=== PATIENT | female | born 1955 | race Caucasian/White ===

== ENCOUNTER → 2018-02-16 | Outpatient (CLI) | payer OTHER | END | disposition home or self-care (01) | LOC: C.MAMM 09:12 | PROVIDERS: ATTEND Internal Medicine | DX: M85.88 Other specified disorders of bone density and structure, other site (principal); M85.851 Other specified disorders of bone density and structure, right thigh; M85.852 Other specified disorders of bone density and structure, left thigh ==

== ENCOUNTER 2023-11-12 21:21 | Inpatient (IN) ==
--- NOTE | 2023-11-12 21:55 | Emergency Department Note ---
Impression & Plan Acute hypoxic respiratory failure, Glioblastoma of frontal lobe, COVID-19, Weakness ED Provider Note Provider: Jacob Cortez MD DATE OF SERVICE: 11/12/2023 CHIEF COMPLAINT: Fever, COVID, weakness HISTORY OF PRESENT ILLNESS: Patient is a 68-year-old female unfortunate history of GBM status postresection in August at [facility] just finished a course of chemotherapy and radiation last week presenting here today with about 2 days of illness. Patient evidently really became ill yesterday but might been a little bit sick the day before. Somewhat productive cough. No fevers. Increasing weakness and this evening was unable to get out of bed well. EMS activated. Tested positive for COVID earlier today and was attempting to give first dose of Paxlovid with the patient was unable to do this. Reportedly bit more weak and may be little more confused but not too far off her baseline per at bedside. No falls. Some diarrhea and urinary frequency. No history of oxygen uses. No OTC medications or Tylenol today. Received at least the initial vaccines for COVID. PAST MEDICAL HISTORY: As noted above MEDICATIONS: Reviewed home medication list but not really taking all medications at this time SOCIAL HISTORY: lives at home PHYSICAL EXAM: GENERAL: alert and oriented in no acute distress on stretcher fatigued in appearance Head: normocephalic and atraumatic EYES: No injection, discharge or icterus. NECK: Trachea midline. Supple. ENT: Mucous membranes pink and moist. LUNGS: Airway patent. No retractions. Breath sounds with some transmitted upper airway sounds HEART: Regular rate and rhythm. No chest wall tenderness ABDOMEN: Soft and non-tender, without guarding or rebound. SKIN: Acyanotic, warm, dry, without rashes EXTREMITIES: Without swelling, tenderness or deformity NEUROLOGICAL: No focal deficits. No aphasia. No facial droop or slurred speech. EK bpm sinus tachycardia. No PVC or PAC. No acute ST segment elevation with some nonspecific T wave changes. QTc calculated by the 650 ms but believe this is overestimating. CONTINUOUS CARDIAC MONITORING: was ordered and showed a heart rate of 100s-120s bpm in sinus tachycardia 1 view chest x-ray per my interpretation: No evidence of obvious pneumonia, pneumothorax, or significant pulmonary edema. Patient's laboratory studies and imaging reviewed. Differential includes Infection, dehydration, metabolic abnormality, hypo/hyperglycemia, electrolyte disturbance, anemia, hypoxia, cardiac sources, intracerebral event, toxicologic, neurologic, as well as other pathologies. IMPRESSION/MEDICAL DECISION MAKING: Patient recently completed chemotherapy and radiation for GBM. COVID-positive evidently febrile upon arrival newly hypoxic. We cannot follow commands to swallow pills according to . Given some IV Tylenol IV fluid and IV dexamethasone given hypoxic COVID status. Chest x-ray head CT initially ordered but nonfocal exam. No trauma reported. Benign abdomen. Denies pain. Blood work does not show any significant leukocytosis or neutropenia. No significant electrolyte abnormality other than mild hypokalemia of 13.2. Lactate normal. Procalcitonin elevated 3.85 and with this finding will empirically cover with a dose of cefepime and given her significant oncological history of dose of vancomycin. COVID does confirm positive. Normal troponin. Chest x-ray without significant findings but given the hypoxia and her cancer status we will complete a CT of the chest to exclude PE or other parenchymal pulmonary pathology beyond the expected COVID findings. Postsurgical changes of the head noted surgery on radiology report. CT of the chest shows some inflammatory changes of the lung bases question atelectasis versus pneumonia but no evidence of PE. Given this antibiotics have been given. Has been vaccinated for COVID in the past. Will require admission here. Hospitalist team contacted. Patient has been updated and agreeable. Given her COVID + status, only given 1L of normal saline here and cautious to avoid fluid overload status do not believe she needs additional fluids at this time. Lactate again reassuring and patient mentation seems a little bit clear. Fever clearing. Potassium & magnesium IV supplementation ordered. DIAGNOSIS: COVID-19, hypoxic, history of GBM, weakness, pneumonia DISPOSITION: Hospitalist will evaluate updated and agreeable with the plan Critical Care I have personally spent 41 minutes of critical care time in the direct management of this patient. This includes bedside care, interpretation of diagnostic studies, and testing, discussion with consultants, patient, and family members, and other required patient management activities. These 41 minutes is in excess of all separately billable procedures. Past Med/Surg History Surgical History (Updated 09/22/23 @ 13:38 by Miriam Sinha, RN) S/P craniotomy Left frontal craniotomy 08/20/23 Dr. Medrano at [facility] [place] History of hysterectomy Family History (Updated 09/22/23 @ 13:41 by Miriam Sinha RN) Mother , in her late 70s Dementia Father , in his late 60s Skin cancer Sister No problems noted. 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 How many Children do You have: 0 Diet: regular caffeine: No during the past year weight has: remained stable Assistive Devices: Glasses Allergies Allergies Allergy/AdvReac Type Severity Reaction Status Date / Time Sulfa (Sulfonamide Allergy Intermediate Hives Verified 11/12/23 23:54 Antibiotics) Home Meds Home Medications Medication Instructions Recorded Confirmed No Known Home Medications 11/12/23 11/12/23 Results & Data (ED) Vital Signs Vital Signs - 24 hr 11/12/23 21:26 11/12/23 21:28 11/12/23 22:00 Temperature 39.3 C H Temperature Source Oral Pulse Rate 116 H 118 H 106 H Pulse Rate from SpO2 Sensor 106 H Respiratory Rate 18 24 Respiratory Effort / Characteristics Non-Labored Respiratory Depth Normal Blood Pressure 115/73 115/73 Blood Pressure Mean 87 87 Pulse Oximetry 89 L 91 Oxygen Delivery Method Nasal Cannula Nasal Cannula Oxygen Flow Rate 2 4 Sepsis Recent Fever Within 48 Hours Yes Sepsis New/Unexplained Change in Mental Status No Sepsis Action Taken by Nursing No Action Required 11/12/23 22:30 11/12/23 23:00 11/12/23 23:22 Temperature 37.7 C H Temperature Source Pulse Rate 107 H 120 H 103 H Pulse Rate from SpO2 Sensor 106 H 119 H 104 H Respiratory Rate 19 19 19 Respiratory Effort / Characteristics Respiratory Depth Blood Pressure 102/82 98/62 L 98/69 L Blood Pressure Mean 88 74 78 Pulse Oximetry 92 89 L 96 Oxygen Delivery Method Nasal Cannula Nasal Cannula Nasal Cannula Oxygen Flow Rate 4 5 4 Sepsis Recent Fever Within 48 Hours Sepsis New/Unexplained Change in Mental Status Sepsis Action Taken by Nursing 11/12/23 23:51 11/13/23 00:00 Temperature Temperature Source Pulse Rate 96 H 95 H Pulse Rate from SpO2 Sensor 96 H Respiratory Rate 18 21 Respiratory Effort / Characteristics Respiratory Depth Blood Pressure 93/68 L 105/68 Blood Pressure Mean 75 80 Pulse Oximetry 96 97 Oxygen Delivery Method Nasal Cannula Nasal Cannula Oxygen Flow Rate 4 3 Sepsis Recent Fever Within 48 Hours Sepsis New/Unexplained Change in Mental Status Sepsis Action Taken by Nursing Laboratory Data 11/12/23 21:39 11/12/23 21:39 Lab Results 11/12/23 11/12/23 Range/Units 21:39 22:01 WBC 6.78 (4.8-10.8) K/ul RBC 4.73 (4.20-5.40) M/uL Hgb 14.2 (12.0-16.0) g/dl Hct 41.5 (37.0-47.0) % MCV 87.7 (80.0-100.0) fL MCH 30.0 (25.0-34.0) pg MCHC 34.2 (32.0-36.0) g/dL RDW Std Deviation 39.3 (36.4-46.3) fL RDW Coeff of Brock 12.2 (11.5-14.5) % Plt Count 191 (130-400) K/uL MPV 11.1 (9.4-12.4) fL Immature Gran % (Auto) 0.4 % Neut % (Auto) 86.9 % Lymph % (Auto) 5.5 % [place] % (Auto) 7.1 % Eos % (Auto) 0.0 % Baso % (Auto) 0.1 % Neut # (Auto) 5.89 (1.40-6.50) K/uL Lymph # (Auto) 0.37 L (1.20-3.40) K/uL [place] # (Auto) 0.48 (0.11-0.59) K/uL Eos # (Auto) 0.00 (0.00-0.50) K/uL Baso # (Auto) 0.01 (0.00-0.20) K/uL Immature Gran # (Auto) 0.03 (0.01-0.20) K/uL PT 11.4 (9.0-12.0) Seconds INR 1.0 (0.9-1.1) Sodium 137 (136-145) mmol/L Potassium 3.2 L (3.5-5.1) mmol/L Chloride 104 (98-107) mmol/L Carbon Dioxide 21 (21-32) mmol/L Anion Gap 12 H (3-11) BUN 14 (6-23) mg/dl Creatinine 0.67 (0.6-1.2) mg/dl Est Cr Clr Drug Dosing 76.3 ml/min Est GFR ( Amer) 105.4 ml/min Est GFR (Non-Af Amer) 91.0 ml/min BUN/Creatinine Ratio 20.9 H (10-20) Glucose 130 H (70-99(Fasting)) mg/dl Lactate 1.2 (0.4-2.0) mmol/L Calcium 9.1 (8.6-10.3) mg/dl Total Bilirubin 0.4 (0.2-1.0) mg/dl AST 28 (13-39) U/L ALT 17 (7-52) U/L Alkaline Phosphatase 54 (34-104) U/L Troponin I High Sens 4.6 (0-14) pg/ml Total Protein 6.7 (6.0-8.3) gm/dl Albumin 4.1 (3.4-5.0) gm/dl Globulin 2.6 (2.5-4.0) gm/dl Albumin/Globulin Ratio 1.6 (0.9-2) Procalcitonin 3.85 H (0-0.5) ng/ml SARS-CoV-2, RNA, NAAT POSITIVE A* (NEGATIVE) Administered Medications Vancomycin HCl 1,250 mg/ (Sodium Chloride) 525 mls @ 200 mls/hr IV NOW ONE Stop: 11/13/23 01:33 Last Admin: 11/12/23 23:56 Dose: 200 mls/hr Documented By: [facility] Discontinued Medications Acetaminophen (Acetaminophen 500 Mg Tab) 1,000 mg PO NOW STA Stop: 11/12/23 22:06 Last Admin: 11/12/23 23:19 Dose: Not Given Documented By: [facility] Dexamethasone Sodium Phosphate (DexamethasonePf 10 Mg/Ml Vial) 6 mg IV NOW ONE Stop: 11/12/23 22:10 Last Admin: 11/12/23 22:19 Dose: 6 mg Documented By: [facility] Sodium Chloride (Nss) 500 mls @ 999 mls/hr IV .Q31M ONE Stop: 11/12/23 22:35 Last Infusion: 11/13/23 00:00 Dose: Infused Documented By: [facility] Admin: 11/12/23 22:23 Dose: 999 mls/hr Documented By: MARCIAL Acetaminophen (Ofirmev) 1,000 mg in 100 mls @ 400 mls/hr IV NOW STA Stop: 11/12/23 22:29 Last Infusion: 11/12/23 22:40 Dose: Infused Documented By: [facility] Admin: 11/12/23 22:23 Dose: 400 mls/hr Documented By: MARCIAL Cefepime HCl (Maxipime) 2,000 mg in 20 mls @ 5 mls/min IV NOW STA; Protocol Stop: 11/12/23 22:57 Last Admin: 11/12/23 23:18 Dose: 5 mls/min Documented By: MARCIAL Ioversol (Optiray 320 125ml) 125 ml IV ONCE ONE Stop: 11/12/23 23:45 Last Admin: 11/12/23 23:44 Dose: 118 ml Documented By: CARMELA Imaging Data Radiologist's Impression: Head CT 11/12/23 22:14 Exam(s): CT HEAD Without Contrast EXAM: CT Head Without Intravenous Contrast CLINICAL HISTORY: Reason for exam: confusion, covid, fever, hxGBM. TECHNIQUE: Axial computed tomography images of the head/brain without intravenous contrast. CTDI is 38.1 mGy and DLP is 1162.18 mGy-cm. Automated exposure control was utilized for the study. A dose lowering technique was utilized adhering to the principles of ALARA. COMPARISON: No relevant prior studies available. FINDINGS: No acute intracranial hemorrhage. No midline shift or mass effect. 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 Age-related cerebral volume loss. Periventricular and subcortical white matter hypoattenuation, consistent with chronic microangiopathy. The visualized orbits appear grossly unremarkable. Old LEFT frontal craniotomy. The visualized paranasal sinuses and mastoid air cells are grossly clear. IMPRESSION: No acute intracranial hemorrhage, midline shift, or mass effect. 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 Old LEFT frontal craniotomy. Electronically signed by: Adi Mendez MD 11/12/23 23:58 PM Chest CTA 11/12/23 22:46 Exam(s): CTA CHEST IV Amt: 118 ml optiray 320 EXAM: CT Angiography Chest With Intravenous Contrast CLINICAL HISTORY: Reason for exam: PE, hypoxia, covid, cancer. TECHNIQUE: Axial computed tomographic angiography images of the chest with intravenous contrast. CTDI is 38.1 mGy and DLP is 1162.18 mGy-cm. Automated exposure control was utilized for the study. A dose lowering technique was utilized adhering to the principles of ALARA. MIP reconstructed images were created and reviewed. COMPARISON: No relevant prior studies available. FINDINGS: Pulmonary arteries: Unremarkable. No acute pulmonary embolism. Aorta: No acute findings. No thoracic aortic aneurysm. Lungs: Consolidations at the lung bases, concerning for atelectasis versus pneumonia. Correlate for aspiration. Pleural space: Unremarkable. No significant effusion. No pneumothorax. Heart: Unremarkable. No cardiomegaly. No significant pericardial effusion. No evidence of RV dysfunction. Bones/joints: No acute fracture. No dislocation. Soft tissues: Unremarkable. Lymph nodes: Unremarkable. No enlarged lymph nodes. IMPRESSION: 1. No acute pulmonary embolism. 2. Consolidations at the lung bases, concerning for atelectasis versus pneumonia. Correlate for aspiration. Electronically signed by: Adi Mendez MD 11/13/23 00:02 AM Discharge Plan Visit Data Chief Complaint: Cough Stated Complaint: WEAKNESS AND COUGH X1 DAY, COVID POS ED Provider: Jacob Cortez Discharge Problem: Acute hypoxic respiratory failure, Glioblastoma of frontal lobe, COVID-19, Weakness Patient Disposition: Being Evaluated by Hospitalist Forms Stand Alone Forms: My [facility] [employer] Prescriptions Prescriptions: No Action No Known Home Medications Referrals Referrals: Liane Mccormack DO [Primary Care Provider] -
[2023-11-12 21:59] LABS: Basophils # (auto) 0.01 K/uL (0.00-0.20); Basophils % (auto) 0.1 %; Hematocrit (blood only) 41.5 % (37.0-47.0); Hemoglobin 14.2 g/dl (12.0-16.0); Immature Granulocytes # (auto) 0.03 K/uL (0.01-0.20); Immature Granulocytes % (auto) 0.4 %; Lymphocytes # (auto) 0.37 K/uL (1.20-3.40); Lymphocytes % (auto) 5.5 %; Mean Corpuscular Hgb Conc 34.2 g/dL (32.0-36.0); Mean Corpuscular Volume 87.7 fL (80.0-100.0); Mean Platelet Volume 11.1 fL (9.4-12.4); Monocytes # (auto) 0.48 K/uL (0.11-0.59); Monocytes % (auto) 7.1 %; Neutrophils # (auto) 5.89 K/uL (1.40-6.50); Neutrophils % (auto) 86.9 %; Platelet Count 191 K/uL (130-400); RDW Coefficient of Variation 12.2 % (11.5-14.5); RDW Standard Deviation 39.3 fL (36.4-46.3); Red Blood Count 4.73 M/uL (4.20-5.40); White Blood Count 6.78 K/ul (4.8-10.8)
[2023-11-12] MEDS ORDERED: SODIUM CHLORIDE 0.9% 500 ML IV ONE (22:05)
[2023-11-12] MEDS ORDERED: ACETAMINOPHEN 500 MG TAB PO STA (22:05)
[2023-11-12] MEDS ORDERED: dexAMETHasone**PF** 10 MG/ML VIAL IV ONE (22:09)
[2023-11-12] MEDS ORDERED: ACETAMINOPHEN 1,000 MG/100 ML VIAL IV STA (22:15)
[2023-11-12 22:20] LABS: Albumin Globulin Ratio 1.6 (0.9-2); Albumin Level 4.1 gm/dl (3.4-5.0); BUN Creatinine Ratio 20.9 (10-20); Bilirubin,Total 0.4 mg/dl (0.2-1.0); Calcium 9.1 mg/dl (8.6-10.3); Creatinine Clr Calc Pharmacy 76.3 ml/min; Est GFR (African American) 105.4 ml/min; Globulin 2.6 gm/dl (2.5-4.0); Potassium 3.2 mmol/L (3.5-5.1); Total Protein 6.7 gm/dl (6.0-8.3)
[2023-11-12 22:25] LABS: Troponin I High Sensitivity 4.6 pg/ml (0-14)
[2023-11-12 22:30] LABS: Prothrombin Time 11.4 Seconds (9.0-12.0)
[2023-11-12] MEDS ORDERED: CEFEPIME 2,000 MG/20 ML VIAL IV STA (22:54)
[2023-11-12] MEDS ORDERED: VANCOMYCIN HCL 1,250 MG in SODIUM CHLORIDE 0.9% 500 ML IV ONE (22:56)
[2023-11-12] MEDS ORDERED: VANCOMYCIN CONSULT ACTIVE PRN (22:56)
[2023-11-12] MEDS ORDERED: OPTIRAY 320 125ml IV ONE (23:44)
--- NOTE | 2023-11-13 | CT Scan Report ---
Exam(s): CT HEAD Without Contrast EXAM: CT Head Without Intravenous Contrast CLINICAL HISTORY: Reason for exam: confusion, covid, fever, hxGBM. TECHNIQUE: Axial computed tomography images of the head/brain without intravenous contrast. CTDI is 38.1 mGy and DLP is 1162.18 mGy-cm. Automated exposure control was utilized for the study. A dose lowering technique was utilized adhering to the principles of ALARA. COMPARISON: No relevant prior studies available. FINDINGS: No acute intracranial hemorrhage. No midline shift or mass effect. 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 Age-related cerebral volume loss. Periventricular and subcortical white matter hypoattenuation, consistent with chronic microangiopathy. The visualized orbits appear grossly unremarkable. Old LEFT frontal craniotomy. The visualized paranasal sinuses and mastoid air cells are grossly clear. IMPRESSION: No acute intracranial hemorrhage, midline shift, or mass effect. 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 Old LEFT frontal craniotomy. Electronically signed by: Adi Mendez MD 11/12/23 23:58 PM
--- NOTE | 2023-11-13 00:03 | CT Scan Report ---
Exam(s): CTA CHEST IV Amt: 118 ml optiray 320 EXAM: CT Angiography Chest With Intravenous Contrast CLINICAL HISTORY: Reason for exam: PE, hypoxia, covid, cancer. TECHNIQUE: Axial computed tomographic angiography images of the chest with intravenous contrast. CTDI is 38.1 mGy and DLP is 1162.18 mGy-cm. Automated exposure control was utilized for the study. A dose lowering technique was utilized adhering to the principles of ALARA. MIP reconstructed images were created and reviewed. COMPARISON: No relevant prior studies available. FINDINGS: Pulmonary arteries: Unremarkable. No acute pulmonary embolism. Aorta: No acute findings. No thoracic aortic aneurysm. Lungs: Consolidations at the lung bases, concerning for atelectasis versus pneumonia. Correlate for aspiration. Pleural space: Unremarkable. No significant effusion. No pneumothorax. Heart: Unremarkable. No cardiomegaly. No significant pericardial effusion. No evidence of RV dysfunction. Bones/joints: No acute fracture. No dislocation. Soft tissues: Unremarkable. Lymph nodes: Unremarkable. No enlarged lymph nodes. IMPRESSION: 1. No acute pulmonary embolism. 2. Consolidations at the lung bases, concerning for atelectasis versus pneumonia. Correlate for aspiration. Electronically signed by: Adi Mendez MD 11/13/23 00:02 AM
[2023-11-13] MEDS ORDERED: SODIUM CHLORIDE 0.9% 500 ML IV ONE (00:05)
[2023-11-13] MEDS: POTASSIUM CHLORIDE / WTR 10 MEQ/100 ML PLCT IV SCH ×2 (01:05→02:34)
[2023-11-13] MEDS ORDERED: KETOROLAC TROMETHAMINE 15 MG/ML VIAL IV ONE (01:46)
[2023-11-13] MEDS ORDERED: POTASSIUM CHLORIDE CRTAB 20 MEQ TABCR PO STA (01:46)
[2023-11-13] MEDS: MAGNESIUM SULFATE / D5W 1 GM/100 ML BAG IV SCH ×3 (01:55→06:21)
--- NOTE | 2023-11-13 02:23 | History & Physical Report ---
Date of Service November 13, 2023 Assessment & Plan (1) COVID-19: Plan: 68-year-old female who was in Er on August 2023 for stroke like symptoms and MRI scan showed brain mass in temporal frontal region causing edema and she was given dose of dexamethasone and transferred to [place] and s/p surgery to remove the tumor and pathology showed grade 4 glioblastoma. Then she had completed chemo and radiation on November 02, 2023. As per after that sh e was doing fine. She was alert and oriented. Ambulating without support. Eating and drinking okay and swallowing okay. The last 2 days she is getting weak. Poor oral intake. Having cough. And she was tested for COVID the morning. Tried to give Paxlovid but she was not able to take orally. So she was brought to the ER. In the ER she had temp spike. She was hypoxic requiring oxygen. Patient is currently oriented to name only. Denies any headache. Denies any chest pain. Denies feeling of short of breath. Denies nausea. No abdominal pain. As per she had diarrhea yesterday. Hemodynamics are okay currently. COVID-19 Hypoxia requiring oxygen Started on dexamethasone and remdesivir Follow remdesivir labs Procalcitonin elevated. Could be from covid. ER empirically started on IV Vanco and cefepime which be continued until cultures are available Gentle fluids for 1 L COVID precautions Close monitor History of grade 4 glioblastoma S/p surgery chemo and radiation Prolonged QTc Avoid QT prolonging drugs iv magnesium given Follow repeat EKG Hypokalemia replace follow labs. DVT prophylaxis Lovenox Disposition Telemetry Full code as per discussion with History of Present Illness Chief Complaint: COVID, hypoxia Primary Care Provider: Liane Mccormack DO 68-year-old female who was in ER on August 2023 for stroke like symptoms and MRI scan showed brain mass in temporal frontal region causing edema and she was given dose of dexamethasone and transferred to [place] and s/p surgery to remove the tumor and pathology showed grade 4 glioblastoma. Then she had completed chemo and radiation on November 02, 2023. As per after that she was doing fine. She was alert and oriented. Ambulating without support. Eating and drinking okay and swallowing okay. The last 2 days she is getting weak. Poor oral intake. Having cough. And she was tested for COVID the morning. Tried to give Paxlovid but she was not able to take orally. So she was brought to the ER. In the ER she had temp spike. She was hypoxic requiring oxygen. Patient is currently oriented to name only. Denies any headache. Denies any chest pain. Denies feeling of short of breath. Denies nausea. No abdominal pain. As per she had diarrhea yesterday. Hemodynamics are okay currently. Past medical history. As mentioned above Past surgical history. Colonoscopy. Dental surgery. Craniotomy on August 20/2023. Total abdominal hysterectomy with removal of tubes. Ultrasound-guided breast aspiration left side in 2010. Social history. . No smoking. No alcohol use. No drug use. Family history. Daughter had breast cancer. Father had melanoma. Allergies Allergy/AdvReac Type Severity Reaction Status Date / Time Sulfa (Sulfonamide Allergy Intermediate Hives Verified 11/12/23 23:54 Antibiotics) Home Medications Medication Instructions Recorded Confirmed Type No Known Home Medications 11/12/23 11/12/23 History Past Med/Surg History Surgical History (Updated 09/22/23 @ 13:38 by Miriam Sinha RN) S/P craniotomy Left frontal crani[place] 08/20/23 [place] [facility] [place] of hysterectomy Family History (Updated 09/22/23 @ 13:41 by Miriam Sinha RN) Mother , in her late 70s Dementia Father , in his late 60s Skin cancer Sister No problems noted. 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 ENT- oropharynx clear Neck- supple, no JVD. Lungs- clear to auscultation no wheezing, mild b/l rhonchi Heart- regular rhythm; no murmur, no gallop. Abdomen- normal bowel sounds, soft, nontender, no distension. Extremities- no pretibial edema, no erythema seen. Neuro- alert, oriented x 1; PERRL, no facial palsy; no dysarthria; moves extremities. Skin- warm & dry Results & Data Results & Data Vital Signs (Past 12 Hours) Vital Signs Temp Pulse Resp BP Pulse Ox O2 Del Method O2 Flow Rate 11/13/23 01:26 101 H 11/13/23 01:00 104 H 18 102/76 94 Nasal Cannula 4 11/13/23 00:30 89 14 95/68 L 93 Nasal Cannula 4 11/13/23 00:00 95 H 21 105/68 97 Nasal Cannula 3 11/12/23 23:51 96 H 18 93/68 L 96 Nasal Cannula 4 11/12/23 23:22 37.7 C H 103 H 19 98/69 L 96 Nasal Cannula 4 11/12/23 23:00 120 H 19 98/62 L 89 L Nasal Cannula 5 11/12/23 22:30 107 H 19 102/82 92 Nasal Cannula 4 11/12/23 22:00 106 H 24 115/73 91 Nasal Cannula 4 11/12/23 21:28 118 H 11/12/23 21:26 39.3 C H 116 H 18 115/73 89 L Nasal Cannula 2 Diagnostic Findings Laboratory Results WBC 6.78 K/ul (4.8-10.8) 11/12/23 21:39 RBC 4.73 M/uL (4.20-5.40) 11/12/23 21:39 Hgb 14.2 g/dl (12.0-16.0) 11/12/23 21:39 Hct 41.5 % (37.0-47.0) 11/12/23 21:39 MCV 87.7 fL (80.0-100.0) 11/12/23 21:39 MCH 30.0 pg (25.0-34.0) 11/12/23 21:39 MCHC 34.2 g/dL (32.0-36.0) 11/12/23 21:39 RDW Std Deviation 39.3 fL (36.4-46.3) 11/12/23 21:39 RDW Coeff of Brock 12.2 % (11.5-14.5) 11/12/23 21:39 Plt Count 191 K/uL (130-400) 11/12/23 21:39 MPV 11.1 fL (9.4-12.4) 11/12/23 21:39 Immature Gran % (Auto) 0.4 % 11/12/23 21:39 Neut % (Auto) 86.9 % 11/12/23 21:39 Lymph % (Auto) 5.5 % 11/12/23 21:39 [place] % (Auto) 7.1 % 11/12/23 21:39 Eos % (Auto) 0.0 % 11/12/23 21:39 Baso % (Auto) 0.1 % 11/12/23 21:39 Neut # (Auto) 5.89 K/uL (1.40-6.50) 11/12/23 21:39 Lymph # (Auto) 0.37 K/uL (1.20-3.40) L 11/12/23 21:39 [place] # (Auto) 0.48 K/uL (0.11-0.59) 11/12/23 21:39 Eos # (Auto) 0.00 K/uL (0.00-0.50) 11/12/23 21:39 Baso # (Auto) 0.01 K/uL (0.00-0.20) 11/12/23 21:39 Immature Gran # (Auto) 0.03 K/uL (0.01-0.20) 11/12/23 21:39 PT 11.4 Seconds (9.0-12.0) 11/12/23 21:39 INR 1.0 (0.9-1.1) 11/12/23 21:39 Sodium 137 mmol/L (136-145) 11/12/23 21:39 Potassium 3.2 mmol/L (3.5-5.1) L 11/12/23 21:39 Chloride 104 mmol/L (98-107) 11/12/23 21:39 Carbon Dioxide 21 mmol/L (21-32) 11/12/23 21:39 Anion Gap 12 (3-11) H 11/12/23 21:39 BUN 14 mg/dl (6-23) 11/12/23 21:39 Creatinine 0.67 mg/dl (0.6-1.2) 11/12/23 21:39 Est Cr Clr Drug Dosing 76.3 ml/min 11/12/23 21:39 Est GFR ( Amer) 105.4 ml/min 11/12/23 21:39 Est GFR (Non-Af Amer) 91.0 ml/min 11/12/23 21:39 BUN/Creatinine Ratio 20.9 (10-20) H 11/12/23 21:39 Glucose 130 mg/dl (70-99(Fasting)) H 11/12/23 21:39 Lactate 1.2 mmol/L (0.4-2.0) 11/12/23 21:39 Calcium 9.1 mg/dl (8.6-10.3) 11/12/23 21:39 Total Bilirubin 0.4 mg/dl (0.2-1.0) 11/12/23 21:39 AST 28 U/L (13-39) 11/12/23 21:39 ALT 17 U/L (7-52) 11/12/23 21:39 Alkaline Phosphatase 54 U/L (34-104) 11/12/23 21:39 Troponin I High Sens 4.6 pg/ml (0-14) 11/12/23 21:39 Total Protein 6.7 gm/dl (6.0-8.3) 11/12/23 21:39 Albumin 4.1 gm/dl (3.4-5.0) 11/12/23 21:39 Globulin 2.6 gm/dl (2.5-4.0) 11/12/23 21:39 Albumin/Globulin Ratio 1.6 (0.9-2) 11/12/23 21:39 Procalcitonin 3.85 ng/ml (0-0.5) H 11/12/23 21:39 SARS-CoV-2, RNA, NAAT POSITIVE (NEGATIVE) A* 11/12/23 22:[address] 11/12/23 22:14 Exam(s): CT HEAD Without Contrast EXAM: CT Head Without Intravenous Contrast CLINICAL HISTORY: Reason for exam: confusion, covid, fever, hxGBM. TECHNIQUE: Axial computed tomography images of the head/brain without intravenous contrast. CTDI is 38.1 mGy and DLP is 1162.18 mGy-cm. Automated exposure control was utilized for the study. A dose lowering technique was utilized adhering to the principles of ALARA. COMPARISON: No relevant prior studies available. FINDINGS: No acute intracranial hemorrhage. No midline shift or mass effect. 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 Age-related cerebral volume loss. Periventricular and subcortical white matter hypoattenuation, consistent with chronic microangiopathy. The visualized orbits appear grossly unremarkable. Old LEFT frontal craniotomy. The visualized paranasal sinuses and mastoid air cells are grossly clear. IMPRESSION: No acute intracranial hemorrhage, midline shift, or mass effect. 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 Old LEFT frontal craniotomy. Electronically signed by: Adi Mendez MD 11/12/23 23:58 PM Chest CTA 11/12/23 22:46 Exam(s): CTA CHEST IV Amt: 118 ml optiray 320 EXAM: CT Angiography Chest With Intravenous Contrast CLINICAL HISTORY: Reason for exam: PE, hypoxia, covid, cancer. TECHNIQUE: Axial computed tomographic angiography images of the chest with intravenous contrast. CTDI is 38.1 mGy and DLP is 1162.18 mGy-cm. Automated exposure control was utilized for the study. A dose lowering technique was utilized adhering to the principles of ALARA. MIP reconstructed images were created and reviewed. COMPARISON: No relevant prior studies available. FINDINGS: Pulmonary arteries: Unremarkable. No acute pulmonary embolism. Aorta: No acute findings. No thoracic aortic aneurysm. Lungs: Consolidations at the lung bases, concerning for atelectasis versus pneumonia. Correlate for aspiration. Pleural space: Unremarkable. No significant effusion. No pneumothorax. Heart: Unremarkable. No cardiomegaly. No significant pericardial effusion. No evidence of RV dysfunction. Bones/joints: No acute fracture. No dislocation. Soft tissues: Unremarkable. Lymph nodes: Unremarkable. No enlarged lymph nodes. IMPRESSION: 1. No acute pulmonary embolism. 2. Consolidations at the lung bases, concerning for atelectasis versus pneumonia. Correlate for aspiration. Electronically signed by: Adi Mendez MD 11/13/23 00:02 AM ECG Additional Comments: ECG. Sinus tachycardia at rate of113. Non specific ST and T wave abnormality. QTC 650. Code Status & VTE Plan VTE Prophylaxis Plan VTE Prophylaxis will be ordered: Yes
[2023-11-13] MEDS ORDERED: POTASSIUM CHLORIDE 20 MEQ/15 ML UDC PO STA (02:39)
[2023-11-13] MEDS ORDERED: ACETAMINOPHEN 1,000 MG/100 ML VIAL IV PRN (03:16)
[2023-11-13] MEDS ORDERED: D5W AND NSS 1,000 ML IV SCH (03:16)
[2023-11-13] MEDS ORDERED: NITROGLYCERIN SL 0.4 MG/TAB TAB SL PRN (03:16)
[2023-11-13] MEDS ORDERED: REMDESIVIR 200 MG in SODIUM CHLORIDE 0.9% 210 ML IV STA (03:27)
[2023-11-13] MEDS ORDERED: POTASSIUM CHLORIDE / WTR 10 MEQ/100 ML PLCT IV ONE (05:08)
--- NOTE | 2023-11-13 07:07 | XRay Report ---
XR chest 1V portable HISTORY: Fever COMPARISON: Chest 08/15/2023. FINDINGS: Slightly rotated study. No pneumothorax. No pleural effusions. The heart is normal in size. No evidence for pulmonary edema. No acute fractures identified. There are patchy bibasilar densities . IMPRESSION: Patchy bibasilar densities. This may represent atelectasis or a pneumonia. ACT 112: Negative or not required by law. Electronically signed by: Andrew Horta M.D. 11/13/2023 7:06 AM
[2023-11-13 07:44] LABS: Basophils # (auto) 0.01 K/uL (0.00-0.20); Basophils % (auto) 0.3 %; Hematocrit (blood only) 37.3 % (37.0-47.0); Hemoglobin 12.2 g/dl (12.0-16.0); Immature Granulocytes # (auto) 0.01 K/uL (0.01-0.20); Immature Granulocytes % (auto) 0.3 %; Lymphocytes # (auto) 0.48 K/uL (1.20-3.40); Lymphocytes % (auto) 12.7 %; Mean Corpuscular Hemoglobin 29.8 pg (25.0-34.0); Mean Corpuscular Hgb Conc 32.7 g/dL (32.0-36.0); Mean Platelet Volume 11.1 fL (9.4-12.4); Monocytes # (auto) 0.31 K/uL (0.11-0.59); Monocytes % (auto) 8.2 %; Neutrophils # (auto) 2.96 K/uL (1.40-6.50); Neutrophils % (auto) 78.5 %; Platelet Count 153 K/uL (130-400); RDW Coefficient of Variation 12.3 % (11.5-14.5); RDW Standard Deviation 40.8 fL (36.4-46.3); White Blood Count 3.77 K/ul (4.8-10.8)
[2023-11-13 08:06] LABS: Albumin Level 3.3 gm/dl (3.4-5.0); BUN Creatinine Ratio 16.4 (10-20); Bilirubin,Total 0.3 mg/dl (0.2-1.0); Calcium 7.9 mg/dl (8.6-10.3); Creatinine Clr Calc Pharmacy 70.8 ml/min; Est GFR (African American) 108.7 ml/min; Est GFR (Non-African American) 93.8 ml/min; Magnesium 2.5 mg/dl (1.7-2.4); Potassium 3.8 mmol/L (3.5-5.1); Total Protein 5.3 gm/dl (6.0-8.3)
[2023-11-13] MEDS ORDERED: dexAMETHasone 6 MG in SYRINGE 0 ML IV SCH (09:00)
--- NOTE | 2023-11-13 09:08 | Pharmacy Report ---
Pharmacy PK ABX Note - Date of Service November 13, 2023 - Assessment and Plan Assessment 68 year old F receiving cefepime/Flagyl for treatment of pneumonia (COVID +). She is immunocompromised, just finish chemotherapy/radiation on 11/02/23 for grade 4 glioblastoma. Pertinent microbiologic data includes: MRSA Nasal Swab pending, blood cultures pending Day # 1 of antimicrobial therapy. Plan Vancomycin * Loading dose: 1250 mg IV x 1 * Maintenance dose: 1000 mg IV every 12 hours * Regimen is predicted to achieve target AUC/MERARI of 400-600 mg/L.hr * Random level ordered for: 11/14/23 with AM labs Pharmacy will continue to follow and will adjust dose/frequency as necessary. Thank you. Pharmacy has transitioned to AUC monitoring for vancomycin. AUC/MERARI is the preferred PK/PD target and is associated with decreased risk of nephrotoxicity compared to traditional trough targets.
[2023-11-13] MEDS: CEFEPIME 2,000 MG in SYRINGE 0 ML IV SCH ×2 (10:34→16:49)
[2023-11-13] MEDS: VANCOMYCIN HCL 1,000 MG in SODIUM CHLORIDE 0.9% 250 ML IV SCH ×2 (10:34→20:48)
[2023-11-13] MEDS: ENOXAPARIN INJ 40 MG/0.4 ML SYR SQ SCH ×2 (10:34→10:52)
[2023-11-13] MEDS: DOXYCYCLINE HYCLATE 100 MG CAP PO SCH (13:29)
--- NOTE | 2023-11-13 13:53 | Communication Note ---
Date of Service: November 13, 2023 Patient admitted with COVID-19 infection with possible bacterial superimposed pneumonia She was sitting up on the bed; not in distress. She is not requiring any supplemental oxygen. On physical exam; Constitutional: WD/WN, vitals as above, NAD, sitting up in bed, pleasant, conversing easily Respiratory: Bilateral vesicular breath sound Cardiovascular: RRR, no murmur, no edema Vessels: no JVD or carotid bruit Chest: normal inspection of chest Abdomen: normal bowel sounds, soft, nontender, no hepatosplenomegaly Musculoskeletal: no cyanosis or clubbing, extremities motor strength 5/5 Skin: no rashes, warm and dry normal turgor Neurologic: PERRL, EOMI, accommodation nl, no face palsy, no dysarthria CN's II- XI intact bilaterally and moves all extremities Psychiatric: A+Ox3, euthymic affect Assessment/plan COVID-19 infectionon dexamethasone, remdesivir. Monitor oxygen level; supplemental oxygen as needed. Bilateral pneumoniaon cefepime, vancomycin and doxycycline. Awaiting MRSA. Discussed with patient's . Updated plan of care. Possible DC in a.m. if patient continues to remain clinically stable.
--- OUTSIDE RECORDS SUMMARY | 2023-11-13 15:02 | External Medical Summary | Summary of Care ---
Author Name Unknown Organization [facility] Address [address] [place] [address] Phone [phone] Care Team Providers Care Child Care Coordinator Name Role Phone Liane Mccormack DO Primary Care Provider Encounter Details Date Type Department Care Team (Late st Contact Info) Description 08/05/2023 Telephone [facility] [address] [place] [address] Liane Mccormack DO [address] [place] [address] Allergies Active Allergy Reactions Criticality Noted Date Comments Sulfa Antibiotics Hives High 04/30/2015 Itchy eyes Sulfate Itching 03/24/2019 documented as of this encounter (statuses as of 11/04/2023) Medications Medication Sig Dispensed Refills Start Date End Date Status Ascorbic Acid (VITAMIN C) 500 MG chewable tablet Take 1 Tablet by mouth in the morning and 1 Tablet before bedtime. 60 Tab 0 03/24/2019 Active Calcium-Vitamin D-Vitamin K (VIACTIV) 500-500-40 MG-UNT-MCG per chew tabletIndications:Oste openia, unspecified location Take 1 Tablet by mouth in the morning and 1 Tablet before bedtime. 30 Tab 3 03/24/2019 Active documented as of this encounter (statuses as of 11/04/2023) Active Problems Problem Noted Date Diagnosed Date Glioblastoma multiforme of frontal lobe 09/10/20 23 documented as of this encounter (statuses as of 11/04/2023) Immunizations Name Administration Dates Next Due TDAP (age 10 and older)(Boostrix) 10/16/2016 documented as of this encounter Social History Tobacco Use Types Packs/Day Years Used Date Smoking Tobacco: Never Smokeless Tobacco: Never Alcohol Use Standard Drinks/Week Comments No 0 (1 standard drink = 0.6 oz pur e alcohol) PHQ-2 Answer Date Recorded PHQ-2 Score 0 03/24/2019 Sex and Gender Information Value Date Recorded Sex Assigned at Female 03/24/2019 12:29 PM EDT Gender Identity Female 03/24/2019 12:29 PM EDT Sexual Orientation Straight 03/24/2019 12 :29 PM EDT Job Start Date Occupation Industry Not on file Not on file Not on file documented as of this encounter Miscellaneous Notes * Telephone Encounter - Leora Jose LPN - 08/06/2023 11:57 AM EDT Invalid phone number on file, [employer] message sent. * Telephone Encounter - Liane Mccormack DO - 08/05/2023 2:59 PM EDT Recent labs were normal. documented in this encounter Plan of Treatment Upcoming Encounters Date Type Department Care Team (Late st Contact Info) Description 01/18/2024 10:10 AM EDT Office Visit [facility] [address] [place] [address] Liane Mccormack DO [address], [place] [id number] Scheduled Procedures Name Priority Associated Diagnoses Date/Ti me COLONOSCOPY FLEXIBLE PROXIMA L DIAGNOSTIC Recall Screening for colon cancer Health Maintenance Due Date Last Done Comments DXA Scan 1956 Hepatitis C Screening 1974 Cologuard 2001 Fecal Occult Blood Test 2001 Sigmoidoscopy 2001 Zoster Vaccines (1 of 2) 2006 Depression Screening 03/24/2020 03/24/2019 Pneumococcal Vaccine: 65+ Years (1 - PCV) 2021 COVID-19 Vaccine (5 - season) 2023 07/15/2022, 04/28/2022, 02/21/2021, Additional history exists Influenza Vaccine (FLU shot) (#1) 2023 09/22/2022, 10/21/2019 Mammogram 10/16/2023 10/16/2022, 06/13, 04/20/2019 Lipid Panel 03/25/2024 03/25/2019 Diabetes Screening 08/28/2026 08/28/2023, 1 , 03/25/2019 DTaP,Tdap,and Td Vaccines (2 - Td or Tdap) 10/16/2026 10/16/2016 Colonoscopy 04/08/2029 04/08/2019, 03/13, 02/09/2009 Colorectal Cancer Screening 04/08/2029 GARDASIL-HPV IMMUNIZATION SERIES Aged Out No longer eligible based on patient's age to complete this topic Hepatitis B Aged Out No longer eligi ble based on patient's age to complete this topic MENINGOCOCCAL (MENACTRA/MENVEO) Aged Out No longer eligible based on patient's age to complete this topic documented as of this encounter Medical Devices Not on filedocumented as of this encounter Care Teams Child Care Coordinator Relationship Specialty Start Date End Date Liane Mccormack DO [address] [place] [address] PCP - General Family Medicine 03/24/19 documented as of this encounter
--- OUTSIDE RECORDS SUMMARY | 2023-11-13 15:02 | External Medical Summary | Continuity of Care Document ---
Author Name Unknown Organization [place] [address] [address] [place] [address] [place] [id number] Care Team Providers Care Home Mission Worker Name Role Phone Liane Mccormack Primary Care Physician [phone] Encounter [facility] [id number] Date(s): 10/28/23 - 10/28/23 [place] [address] [address] [facility] Neurosurgery [address], [address] [place] [address] [phone] Encounter Diagnosis Glioblastoma(Discharge Diagnosis) - 10/28/23 Short-term memory loss(Discharge Diagnosis) - 10/28/23 Fatigue(Discharge Diagnosis) - 10/28/23 Radiation alopecia(Discharge Diagnosis) - 10/28/23 Patient on combined chemotherapy and radiation(Discharge Diagnosis) - 10/28/23 Discharge Disposition: Home or Self Care Attending Physician: MD Genoveva, Mike Kessler Referring Physician: DO Mccormack Laura L Allergies, Adverse Reactions, Alerts Substance Reaction Severity Status sulfADIAZINE hives Active Immunizations Given and Recorded Vaccine Date Status Refusal Reason influenza virus vaccine, inactivated 08/19/23 Give n Medications temozolomide 100 mg oral capsule Start: 09/09/23 17:32:00 EST, 1 cap, PO, qhs, Disp# 25 cap, Refills: 0, Take on an empty stomach starting night before 1st radiation & ending last night of radiation (total dose 125mg), Pharmacy:[facility] Pharmacy Start Date: 09/09/23 Status: Ordered temozolomide 20 mg oral capsule Start: 09/09/23 17:32:00 EST, 1 cap, PO, qhs, Disp# 25 cap, Refills: 0, Take on an empty stomach starting night before 1st radiation & ending last night of radiation (total dose 125mg), Pharmacy:[facility] Pharmacy Start Date: 09/09/23 Status: Ordered temozolomide 5 mg oral capsule Start: 09/09/23 17:32:00 EST, 1 cap, PO, qhs, Disp# 25 cap, Refills: 0, Take on an empty stomach starting night before 1st radiation & ending last night of radiation (total dose 125mg), Pharmacy:[facility] Pharmacy Start Date: 09/09/23 Status: Ordered Viactiv Multi-Vitamin Start: 04/17/16 8:33:00 Start Date: 04/17/16 Status: Ordered Vitamin C Start: 04/17/16 8:32:00, 1,000 mg =, PO, Daily Start Date: 04/17/16 Status: Ordered Zofran 8 mg oral tablet Start: 09/09/23 17:32:00 EST, See Instructions, Disp# 60 tab, Refills: 5, 1 tab PO 1 hour before each temozolomide dose & every 8hr prn, Pharmacy: [facility] Pharmacy Start Date: 09/09/23 Status: Ordered Mental Status 10/28/23 Barriers to Learning one year None evide nt Mandatory Health Literacy Documentation Yes Health Literacy Communication Barriers N ever Primary Language Persian Problem List No Chronic Problems Diagnosis Diagnosis Type Effective Dates Health Status Clinical Service Informant Patient on combined chemotherapy and radiation Discharge Diagnosis 10/28/23 Short-term memory loss Discharge Diagnosis 10/28/23 Glioblastoma Discharge Diagnosis 10/28/23 Fatigue Discharge Diagnosis 10/28/23 Radiation alopecia Discharge Diagnosis 10/28/23 Procedures Procedure Date Related Diagnosis Body Site Status Hysterectomy Completed Social History Social History Type Response Smoking Status Never smoked cigaret missael Sex Female Implantable Device List Procedure Provider Procedure Date Device Type Site Unknown Unknown 08/20/23 Unknown Unknown Device Identifier Serial Number Lot or Batch Number Manufacturing Date Expiration Date Distinct Identification Code MRI Safety Implantable Status Assigning Authority Unknown Unknown [id number] Unknown 01/09/26 Unknown Unknown Active Unk nown Unknown Unknown N/A Unknown Unknown Unknown Unknown Active Unkn own Unknown Unknown N/A Unknown Unknown Unknown Unknown Active Unkn own Unknown Unknown N/A Unknown Unknown Unknown Unknown Active Unkn own Patient Care team information Care Team Personnel Name: MD Genoveva, Mike Kessler Position: Physician - Neurosurgery Member Role: Lifetime Relationship Address: Address: [address] [place] [address] Name: DO Mccormack Laura L Position: Referring DIRECT Member Role: Primary Care Provider Address: Address: [address] [place] [id number] Name: Cherelle Gonzalez RPh, William Position: Pharmacist Member Role: Pharmacy - Lifetime Care Team Related Persons Name: BASILIA BARNES Name: NASRIN SALINAS Name: ZAINA SALINAS Address: home [address] [place] [id number] Name: ZAINA SALINAS Address: home [address] [place] [id number]
[2023-11-14] MEDS: CEFEPIME 2,000 MG in SYRINGE 0 ML IV SCH ×2 (01:04→09:19)
[2023-11-14] MEDS: DOXYCYCLINE HYCLATE 100 MG CAP PO SCH ×2 (01:04→10:39)
[2023-11-14 05:58] LABS: Hematocrit (blood only) 35.4 % (37.0-47.0); Hemoglobin 12.3 g/dl (12.0-16.0); Immature Granulocytes # (auto) 0.02 K/uL (0.01-0.20); Immature Granulocytes % (auto) 0.4 %; Lymphocytes # (auto) 0.77 K/uL (1.20-3.40); Mean Corpuscular Hgb Conc 34.7 g/dL (32.0-36.0); Mean Corpuscular Volume 89.2 fL (80.0-100.0); Mean Platelet Volume 11.6 fL (9.4-12.4); Monocytes # (auto) 0.53 K/uL (0.11-0.59); Monocytes % (auto) 9.6 %; Neutrophils # (auto) 4.19 K/uL (1.40-6.50); Platelet Count 178 K/uL (130-400); RDW Coefficient of Variation 12.2 % (11.5-14.5); Red Blood Count 3.97 M/uL (4.20-5.40); White Blood Count 5.51 K/ul (4.8-10.8)
[2023-11-14 06:11] LABS: BUN Creatinine Ratio 23.1 (10-20); Calcium 8.3 mg/dl (8.6-10.3); Creatinine Clr Calc Pharmacy 71.8 ml/min; Est GFR (African American) 106.5 ml/min; Est GFR (Non-African American) 91.9 ml/min; Potassium 3.6 mmol/L (3.5-5.1)
--- NOTE | 2023-11-14 06:43 | Electrocardiogram Report ---
Test Reason : Blood Pressure : / mmHG Vent. Rate : 113 BPM Atrial Rate : 113 BPM P-R Int : 114 ms QRS Dur : 072 ms QT Int : 308 ms P-R-T Axes : 045 014 066 degrees QTc Int : 423 ms Sinus tachycardia Nonspecific ST and T wave abnormality Abnormal ECG When compared with ECG of 15-AUG-2023 14:25, Vent. rate has increased BY 37 BPM Nonspecific T wave abnormality now evident in Anterolateral leads Confirmed by Kamron Daley ([id number]) on 11/14/2023 6:42:58 AM Referred By: REFERRED SELF Confirmed By:Kamron Daley
[2023-11-14] MEDS ORDERED: VANCOMYCIN LEVEL ONE (07:00)
--- NOTE | 2023-11-14 11:56 | Discharge Summary ---
Date of Service November 14, 2023 Admission HPI Per Admitting Provider 68-year-old female who was in ER on August 2023 for stroke like symptoms and MRI scan showed brain mass in temporal frontal region causing edema and she was given dose of dexamethasone and transferred to [place] and s/p surgery to remove the tumor and pathology showed grade 4 glioblastoma. Then she had completed chemo and radiation on November 02, 2023. As per after that she was doing fine. She was alert and oriented. Ambulating without support. Eating and drinking okay and swallowing okay. The last 2 days she is getting weak. Poor oral intake. Having cough. And she was tested for COVID the morning. Tried to give Paxlovid but she was not able to take orally. So she was brought to the ER. In the ER she had temp spike. She was hypoxic requiring oxygen. Patient is currently oriented to name only. Denies any headache. Denies any chest pain. Denies feeling of short of breath. Denies nausea. No abdominal pain. As per she had diarrhea yesterday. Hemodynamics are okay currently. Past medical history. As mentioned above Past surgical history. Colonoscopy. Dental surgery. Craniotomy on August 20/2023. Total abdominal hysterectomy with removal of tubes. Ultrasound-guided breast aspiration left side in 2010. Social history. . No smoking. No alcohol use. No drug use. Family history. Daughter had breast cancer. Father had melanoma. Admission Exam Per Admitting Provider General- Not in distress Head- atraumatic Eyes- PERRL. ENT- oropharynx clear Neck- supple, no JVD. Lungs- clear to auscultation no wheezing, mild b/l rhonchi Heart- regular rhythm; no murmur, no gallop. Abdomen- normal bowel sounds, soft, nontender, no distension. Extremities- no pretibial edema, no erythema seen. Neuro- alert, oriented x 1; PERRL, no facial palsy; no dysarthria; moves extremities. Skin- warm & dry Principal Diagnosis COVID-19 infection Bilateral pneumonia Discharge Exam Constitutional: Awake, oriented to self; needs frequent redirection Respiratory: Bilateral vesicular breath sound. No added sound. Cardiovascular: RRR, no murmur, no edema Vessels: no JVD or carotid bruit Chest: normal inspection of chest Abdomen: normal bowel sounds, soft, nontender, no hepatosplenomegaly Musculoskeletal: no cyanosis or clubbing, extremities motor strength 5/5 Skin: no rashes, warm and dry normal turgor Neurologic: PERRL, EOMI, accommodation nl, no face palsy, no dysarthria CN's II- XI intact bilaterally and moves all extremities Discharge Data Allergies Allergy/AdvReac Type Severity Reaction Status Date / Time Sulfa (Sulfonamide Allergy Intermediate Hives Verified 11/12/23 23:54 Antibiotics) Consultations 11/13/23 00:06 ED Decision to Admit Stat Ordered Studies 11/12/23 22:14 CT head/brain wo con Stat 11/12/23 22:46 CT angio chest PE protocol Stat Hospital Course (1) COVID-19: (2) Pneumonia: Plan 68-year-old female who was in ED on August 2023 for stroke like symptoms and MRI scan showed brain mass in temporal frontal region causing edema and she was given dose of dexamethasone and transferred to [facility] and s/p surgery to remove the tumor and pathology showed grade 4 glioblastoma. Then she had completed chemo and radiation on November 02, 2023. She was having poor oral intake and weakness for the last 2 days. She was diagnosed with COVID-19 and was unable to tolerate Paxlovid. On presentation to the ED, patient was vitally stable. She was saturating well in room air. CTA chest did not show PE. Was consistent with consolidation at the lung bases. Patient was admitted to the telemetry floor; started on dexamethasone and remdesivir for COVID-19 infection. She was started on IV antibiotics as well for possible bacterial pneumonia. Patient gradually improved throughout the hospitalization; she was discharged home on oral antibiotics. Patient to follow-up with PCP as outpatient. Please note the above document was generated using voice recognition software. It may contain grammatical, syntax or spelling errors. Any formal questions or concerns about the content, text or information contained within the body of this dictation should be directly addressed to the provider for clarification Total Time Total Time Spent Total Time Spent (In Minutes): 35 Total Time Includes: Examination of the Patient, Discharge Planning, Medication Reconciliation, Communication With Other Providers and Other Discharge Plan Discharge Items Patient Disposition: Home - Self-Care Reason For Visit: COVID, HYPOXIA Discharge Diagnosis: COVID-19 infection Pneumonia Activity: Resume your previous activity Non-emergency contact: Primary Care Provider Call non-emergency contact if: you have any medication questions and your symptoms worsen Follow-up/Referrals: Liane Mccormack, [Primary Care Provider] - Diet: Regular Addtl Attending Provider Instructions: You were admitted to the hospital due to COVID-[address] showed bilateral pneumonia. You are prescribed following medication for treatment of pneumonia for 5 more days: 1) Cefdinir 300 mg twice a day 2) Doxycycline 100 mg twice a day An appointment will be set up with your primary care doctor for sometime next week. Pending Studies at Discharge: No Stand-Alone Forms: [facility], Smoking Cessation Medications and DC Order Prescriptions: New doxycycline hyclate 100 mg Capsule 100 mg PO BID 5 Days Qty: 10 0RF cefdinir 300 mg capsule 300 mg PO BID 5 Days Qty: 10 0RF Discharge Orders: Discharge Order (Routine); Ordered 11/14/23 Ordered By: Marvin Marrero Admission Data Admit Date/Time: 11/13/23 01:39 Attending Provider: Marvin Marrero Admit Provider: Leander Tyler Primary Care Provider: Liane Mccormack Other Providers: Leander Tyler Other Interventions: Discharge Summary Assessment (RN) Last Done: 11/14/23 10:32
[2023-11-14] MEDS ORDERED: REMDESIVIR 100 MG in SODIUM CHLORIDE 0.9% 230 ML IV SCH (12:00)
--- NOTE | 2023-11-15 06:22 | Electrocardiogram Report ---
Test Reason : Blood Pressure : / mmHG Vent. Rate : 071 BPM Atrial Rate : 071 BPM P-R Int : 114 ms QRS Dur : 088 ms QT Int : 428 ms P-R-T Axes : 062 046 065 degrees QTc Int : 465 ms Normal sinus rhythm Normal ECG When compared with ECG of 12-NOV-2023 21:37, Vent. rate has decreased BY [address] no longer depressed in Lateral leads Nonspecific T wave abnormality no longer evident in Anterolateral leads Confirmed by Kamron Daley ([id number]) on 11/15/2023 6:21:44 AM Referred By: REFERRED SELF Confirmed By:Kamron Daley
== END 2023-11-14 10:55 | disposition home or self-care (01) | DRG 177 ==
LOC: ED 21:21 → 2S 11-13 01:39

== ENCOUNTER 2023-11-30 09:20 | Inpatient (IN) ==
--- NOTE | 2023-11-30 10:22 | Emergency Department Note ---
Impression & Plan Headache, Acute neck pain, History of brain tumor ED Provider Note NAME: JOSE SALINAS AGE: 68 SEX: F : 1955 ARRIVES VIA: Ambulance INFORMANT: [Patient][] ED PROVIDER(S): [Manish Traore MD] CHIEF COMPLAINT: Neck pain HISTORY OF PRESENT ILLNESS: The patient is a 68-year-old female presents with 2 days of neck pain and then this morning, a headache. The patient is a poor historian because of a history of previous brain tumor with resection. The majority of the history was obtained from her . This morning, as per the , the patient was in pain and he could not really get her out of bed. The ambulance was called. There has been no cough or congestion the last few days, no urinary complaints, no fever. There has been no trauma. The patient and her recently recovered from COVID-19. Of note, the patient's approached me outside the room and was adamant that his has progressed to the point where he can no longer adequately care for her. He believes she will need care center placement. PMHx/PSHx/Social Hx: See Below PHYSICAL EXAM: GENERAL: Patient is in no acute distress. HEENT: No acute trauma, normocephalic atraumatic, mucous membranes moist, no nasal congestion. NECK: No stridor, no adenopathy, no meningismus, trachea is midline. No muscle spasm or discomfort with palpation. Equal carotid upstrokes bilaterally. No midline posterior cervical discomfort with palpation. LUNGS: Clear to auscultation bilaterally, no wheeze, no rhonchi, breath sounds equal. HEART: Without murmurs gallops or rubs, regular rate and rhythm. ABDOMEN: Soft, nontender, no peritonitis. EXTREMITIES: No cyanosis, full range of motion of all the joints without pain or difficulty. NEUROLOGIC: Awake and alert, poor historian, no acute motor or sensory deficits, no focal weakness. SKIN: No jaundice, no diaphoresis. DIFFERENTIAL DIAGNOSIS: Arterial dissection, aneurysm, intracranial bleeding, musculoskeletal pain, fracture, UTI, anemia, [place], among others. EMERGENCY DEPARTMENT PROCEDURES: MEDICAL DECISION MAKING: There is no leukocytosis or concerning anemia. There is a normal platelet count. No renal failure or significant electrolyte abnormality. No concerning liver enzyme elevation. ECG shows a sinus rhythm, no obvious acute ischemia. Cardiac enzyme testing x 1 is not consistent with acute cardiac injury. Chest x-ray does not show mediastinal widening, pneumonia or pneumothorax. Brain CT shows changes consistent with her previous tumor resection. No acute bleed. CT angio of the head and neck were performed, there was no clot, no dissection or significant stenosis. C-spine CT did not show fracture or bony erosion. On exam, the patient was not febrile or toxic. I could not reproduce any area of pain. Patient did receive IV Tylenol for discomfort. She was given a 500 cc saline bolus. I did not find any concerns on her medical workup. No findings of fracture or for acute intracranial process. The patient has progressed to the point where her is no longer able to adequately be her caregiver. He was asking for care center placement. I spoke with case management. The patient will need hospitalization at this facility before she can be placed. The on-call hospitalist was consulted. Prior/Outside records/notes reviewed: Today's EMS notes describing her presentation and transfer to this hospital. ECG per my interpretation: Indication was neck pain. The ECG shows a sinus rhythm with a shorter NH. The rate is 91. There is some baseline artifact. There is no ST elevation, no PVCs. The QTc is 420. Continuous Cardiac Monitoring per my interpretation: An order was placed for continuous cardiac monitoring. The monitor shows a rate of 96 with normal sinus rhythm. Imaging/x-ray results per my interpretation: Chest x-ray does not show mediastinal widening, pneumonia or pneumothorax. Chronic Medical/Social conditions affecting care: Brain tumor history. Care/Management discussed with: Case management, the on-call hospitalist. Level of care consideration(s): After review of the information above and other included data: --I believe the patient requires escalation of care to admission DISPOSITION: Admission with presumed eventual care center placement. Past Med/Surg History Medical History Weakness Surgical History S/P craniotomy Left frontal craniotomy 08/20/23 Dr. Medrano at [facility] [place] History of hysterectomy Family History (Updated 09/22/23 @ 13:41 by Jose Sinha RN) Mother , in her late 70s Dementia Father , in his late 60s Skin cancer Sister No problems noted. 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 How many Children do You have: 0 Feels Safe at Home: Yes Diet: regular caffeine: No during the past year weight has: remained stable Assistive Devices: Glasses Allergies Allergies Allergy/AdvReac Type Severity Reaction Status Date / Time Sulfa (Sulfonamide Allergy Intermediate Hives Verified 11/30/23 14:23 Antibiotics) Home Meds Home Medications Medication Instructions Recorded Confirmed No Known Home Medications 11/30/23 11/30/23 Results & Data (ED) Vital Signs Vital Signs - 24 hr 11/30/23 09:28 11/30/23 09:31 11/30/23 10:23 Temperature 36.8 C Temperature Source Oral Pulse Rate 94 H 96 H Pulse Rate [Finger] 96 H Respiratory Rate 18 17 Respiratory Effort / Characteristics Non-Labored Non-Labored Respiratory Depth Normal Normal Respiratory Pattern Regular Blood Pressure 144/90 H Blood Pressure [Left Arm] 144/90 H Blood Pressure Mean 108 Blood Pressure Mean [Left Arm] 108 Pulse Oximetry 97 98 Oxygen Delivery Method Room Air Room Air Oxygen Flow Rate Sepsis Recent Fever Within 48 Hours No Sepsis New/Unexplained Change in Mental Status N/A Sepsis Action Taken by Nursing No Action Required 11/30/23 12:18 Temperature Temperature Source Pulse Rate Pulse Rate [Finger] Respiratory Rate Respiratory Effort / Characteristics Respiratory Depth Respiratory Pattern Blood Pressure Blood Pressure [Left Arm] Blood Pressure Mean Blood Pressure Mean [Left Arm] Pulse Oximetry 98 Oxygen Delivery Method Room Air Oxygen Flow Rate 0 Sepsis Recent Fever Within 48 Hours Sepsis New/Unexplained Change in Mental Status Sepsis Action Taken by [facility] Medications Current Medication List: was personally reviewed by me Laboratory Data Attestation: I reviewed the patient's lab results. 11/30/23 09:33 11/30/23 09:33 Lab Results 02/19/24 Range/Units 09:33 WBC 10.59 (4.8-10.8) K/ul RBC 4.90 (4.20-5.40) M/uL Hgb 14.5 (12.0-16.0) g/dl Hct 42.9 (37.0-47.0) % MCV 87.6 (80.0-100.0) fL MCH 29.6 (25.0-34.0) pg MCHC 33.8 (32.0-36.0) g/dL RDW Std Deviation 39.6 (36.4-46.3) fL RDW Coeff of Brock 12.3 (11.5-14.5) % Plt Count 257 (130-400) K/uL MPV 11.1 (9.4-12.4) fL Immature Gran % (Auto) 0.5 % Neut % (Auto) 75.4 % Lymph % (Auto) 12.9 % [place] % (Auto) 9.4 % Eos % (Auto) 1.4 % Baso % (Auto) 0.4 % Neut # (Auto) 7.98 H (1.40-6.50) K/uL Lymph # (Auto) 1.37 (1.20-3.40) K/uL [place] # (Auto) 1.00 H (0.11-0.59) K/uL Eos # (Auto) 0.15 (0.00-0.50) K/uL Baso # (Auto) 0.04 (0.00-0.20) K/uL Immature Gran # (Auto) 0.05 (0.01-0.20) K/uL Sodium 139 (136-145) mmol/L Potassium 3.6 (3.5-5.1) mmol/L Chloride 106 (98-107) mmol/L Carbon Dioxide 25 (21-32) mmol/L Anion Gap 8 (3-11) BUN 7 (6-23) mg/dl Creatinine 0.63 (0.6-1.2) mg/dl Est Cr Clr Drug Dosing 69.8 ml/min Est GFR ( Amer) 107.6 ml/min Est GFR (Non-Af Amer) 92.8 ml/min BUN/Creatinine Ratio 11.1 (10-20) Glucose 101 H (70-99(Fasting)) mg/dl Calcium 9.6 (8.6-10.3) mg/dl Magnesium 2.0 (1.7-2.4) mg/dl Total Bilirubin 0.6 (0.2-1.0) mg/dl AST 15 (13-39) U/L ALT 11 (7-52) U/L Alkaline Phosphatase 70 (34-104) U/L Troponin I High Sens < 2.3 (0-14) pg/ml Total Protein 7.4 (6.0-8.3) gm/dl Albumin 4.1 (3.4-5.0) gm/dl Globulin 3.3 (2.5-4.0) gm/dl Albumin/Globulin Ratio 1.2 (0.9-2) Administered Medications Discontinued Medications Sodium Chloride (Nss) 500 mls @ 999 mls/hr IV .Q31M MARY Stop: 11/30/23 10:45 Last Infusion: 11/30/23 11:20 Dose: Infused Documented By: Admin: 11/30/23 10:40 Dose: 999 mls/hr Documented By: AYLIN Acetaminophen (Ofirmev) 1,000 mg in 100 mls @ 400 mls/hr IV NOW STA Stop: 11/30/23 10:28 Last Infusion: 11/30/23 11:20 Dose: Infused Documented By: Admin: 11/30/23 10:38 Dose: 400 mls/hr Documented By: AYLIN Ioversol (Optiray 320 125ml) 112 ml IV ONCE ONE Stop: 11/30/23 11:27 Last Admin: 11/30/23 11:26 Dose: 112 ml Documented By: BECCA Imaging Data Radiologist's Impression: Chest X-Ray 11/30/23 10:13 XR chest 1V portable HISTORY: weakness COMPARISON: Chest 11/12/2023. FINDINGS: No pneumothorax. No pleural effusions. A few bibasilar linear densities suggesting subsegmental atelectasis or scarring. Otherwise, no focal lung consolidations to suggest a pneumonia. No evidence for pulmonary edema. The heart is normal in size. No acute fractures. Slightly rotated study. IMPRESSION: No acute process. ACT 112: Negative or not required by law. Electronically signed by: Andrew Horta M.D. 11/30/2023 11:07 AM Head CTA 11/30/23 10:13 HEAD CTA HISTORY: neck pain, headache TECHNIQUE: Multiaxial CT images of the head were performed following the intravenous administration of contrast to evaluate the major cerebral vessels. 3D/MIP images were also obtained. Sagittal and coronal reformats were reviewed. A dose lowering technique was utilized adhering to the principles of ALARA. COMPARISON: None. FINDINGS: There is no mass, hematoma, midline shift, or acute infarct. Visualized intracranial internal carotid arteries, distal vertebral arteries, and basilar artery are widely patent. There is no significant stenosis, occlusion, or aneurysm seen within the bilateral ACAs, MCAs, or disc sander. Major dural venous sinuses are patent. Left frontal craniotomy with underlying dural thickening encephalomalacia. This is better appreciated on the same day head CT. Mild calcified plaque within the bilateral carotid siphons. IMPRESSION: 1. No significant stenosis, occlusion, or aneurysm within the [place]. 2. Left frontal craniotomy. This is better appreciated on the same day head CT. ACT 112: Negative or not required by law. Electronically signed by: Andrew Horta M.D. 11/30/2023 12:02 PM Neck CTA 11/30/23 10:13 CT angio neck with con CLINICAL HISTORY: 68 years-old Female with neck pain, headache. Acute headache with right-sided neck pain COMPARISON STUDY: CT cervical spine of same day, CTA head of same day TECHNIQUE: Following the IV administration of 112 mL of Optiray, CT angiogram of the neck was performed from the aortic arch to the skull base. Images are reviewed in the axial, sagittal, and coronal planes. 3-D MIPS images are created and assessed. IV contrast was administered without complication. All measurements were calculated based on NASCET criteria. A dose lowering technique was utilized adhering to the principles of ALARA. CT DOSE: 1530.41 mGy.cm FINDINGS: Three-vessel morphology of the thoracic aortic arch. Patency of the innominate and image subclavian arteries. The common and internal carotid arteries are also widely patent. The vertebral arteries are codominant and widely patent. No aneurysm, dissection, high-grade stenosis or arterial occlusion. Multilevel degenerative changes of the cervical spine. Lung apices are clear. Unremarkable soft tissues. IMPRESSION:Unremarkable CTA of the neck. ACT 112: Negative or not required by law. The above report was generated using voice recognition software. It may contain grammatical, syntax or spelling errors. Electronically signed by: Akbar Laboy M.D. 11/30/2023 12:[address] 11/30/23 10:14 CT head/brain wo con CLINICAL HISTORY: headache, tumor history Technique: Contiguous axial CT images of the head were acquired from the base of the skull to the vertex without intravenous contrast administration. Images were viewed in brain, subdural and bone windows. Automated dose lowering techniques and/or adjustment according to patient size were utilized for this exam. Comparison: Comparison is made to CT head 11/12/2023 Findings: Postsurgical changes are again seen in the left frontal lobe. There is associated dural thickening and encephalomalacia of the left frontal lobe. Right maxillary sinus disease is seen. The orbits appear normal. There are no acute fractures of the calvaria or scalp swelling. Impression: No acute intracranial hemorrhage, no evidence of acute territorial infarction or other acute intracranial disease process. Postsurgical changes are seen as above without definite evidence of underlying mass. ACT 112: Negative or not required by law. Electronically signed by: Bridger Wolfe M.D. 11/30/2023 11:[address] 11/30/23 10:22 CT cervical spine wo con CLINICAL HISTORY: 68 years-old Female with pain, hist of radiation. Acute neck pain without reported trauma COMPARISON: CTA neck of same day TECHNIQUE: Multiple axial CT images of the cervical spine were obtained without contrast. A dose lowering technique was utilized adhering to the principles of ALARA. FINDINGS: Multilevel degenerative degenerative changes of the cervical spine include moderate intervertebral disc space narrowing and spondylitic spurring at C5-C6 and C6-C7. Multilevel facet arthrosis, severe at C7-T1 and T1-T2. No acute fracture or subluxation identified. Suboptimal evaluation of the central canal and neural foramina by CT technique. The cervical soft tissues appear unremarkable. The visualized lung apices appear clear. IMPRESSION: No acute cervical spine fracture or subluxation. ACT 112: Negative or not required by law. The above report was generated using voice recognition software. It may contain grammatical, syntax or spelling errors. Electronically signed by: Akbar Laboy M.D. 11/30/2023 12:17 PM Discharge Plan Visit Data Chief Complaint: Neck Injury/Pain ED Provider: Manish Traore Discharge Problem: Headache, Acute neck pain, History of brain tumor Patient Disposition: Admitted As Inpatient Condition: Good Discharge Problem: Headache Qualifiers: Headache type: unspecified Headache chronicity pattern: acute headache I ntractability: not intractable Qualified Code(s): R51.9 - Headache, unspecified
[2023-11-30] MEDS: ACETAMINOPHEN 1,000 MG/100 ML VIAL IV STA (10:38)
[2023-11-30] MEDS: SODIUM CHLORIDE 0.9% 500 ML IV SCH (10:40)
[2023-11-30 10:47] LABS: Basophils # (auto) 0.04 K/uL (0.00-0.20); Basophils % (auto) 0.4 %; Eosinophils # (auto) 0.15 K/uL (0.00-0.50); Eosinophils % (auto) 1.4 %; Hematocrit (blood only) 42.9 % (37.0-47.0); Hemoglobin 14.5 g/dl (12.0-16.0); Immature Granulocytes # (auto) 0.05 K/uL (0.01-0.20); Immature Granulocytes % (auto) 0.5 %; Lymphocytes # (auto) 1.37 K/uL (1.20-3.40); Lymphocytes % (auto) 12.9 %; Mean Corpuscular Hemoglobin 29.6 pg (25.0-34.0); Mean Corpuscular Hgb Conc 33.8 g/dL (32.0-36.0); Mean Corpuscular Volume 87.6 fL (80.0-100.0); Mean Platelet Volume 11.1 fL (9.4-12.4); Monocytes % (auto) 9.4 %; Neutrophils # (auto) 7.98 K/uL (1.40-6.50); Neutrophils % (auto) 75.4 %; Platelet Count 257 K/uL (130-400); RDW Coefficient of Variation 12.3 % (11.5-14.5); RDW Standard Deviation 39.6 fL (36.4-46.3); White Blood Count 10.59 K/ul (4.8-10.8)
[2023-11-30 11:01] LABS: Alanine Aminotransferase 11 U/L (7-52); Albumin Globulin Ratio 1.2 (0.9-2); Albumin Level 4.1 gm/dl (3.4-5.0); Alkaline Phosphatase 70 U/L (34-104); Anion Gap 8 (3-11); Aspartate Aminotransferase 15 U/L (13-39); BUN Creatinine Ratio 11.1 (10-20); Bilirubin,Total 0.6 mg/dl (0.2-1.0); Blood Urea Nitrogen 7 mg/dl (6-23); Calcium 9.6 mg/dl (8.6-10.3); Carbon Dioxide 25 mmol/L (21-32); Chloride 106 mmol/L (98-107); Creatinine Clr Calc Pharmacy 69.8 ml/min; Est GFR (African American) 107.6 ml/min; Est GFR (Non-African American) 92.8 ml/min; Globulin 3.3 gm/dl (2.5-4.0); Glucose 101 mg/dl (70-99(Fasting)); Potassium 3.6 mmol/L (3.5-5.1); Sodium 139 mmol/L (136-145); Total Protein 7.4 gm/dl (6.0-8.3)
[2023-11-30 11:07] LABS: Troponin I High Sensitivity < 2.3 pg/ml (0-14)
--- NOTE | 2023-11-30 11:08 | XRay Report ---
XR chest 1V portable HISTORY: weakness COMPARISON: Chest 11/12/2023. FINDINGS: No pneumothorax. No pleural effusions. A few bibasilar linear densities suggesting subsegme ntal atelectasis or scarring. Otherwise, no focal lung consolidations to suggest a pneumonia. No evid ence for pulmonary edema. The heart is normal in size. No acute fractures. Slightly rotated study. IMPRESSION: No acute process. ACT 112: Negative or not required by law. Electronically signed by: Andrew Horta M.D. 11/30/2023 11:07 AM
[2023-11-30] MEDS: OPTIRAY 320 125ml IV ONE (11:26)
--- OUTSIDE RECORDS SUMMARY | 2023-11-30 11:47 | External Medical Summary | Summary of Care ---
Author Name Unknown Organization [facility] Address [address] [place] [address] Phone [phone] Care Team Providers Care Bit And Shank Department Supervisor Name Role Phone Liane Mccormack DO Primary Care Provider [phone] Reason for Visit * Reason Comments Hospital Follow-Up covid Encounter Details Date Type Department Care Team (Late st Contact Info) Description 11/23/2023 11:10 AM EST Office Visit [facility] [address] [place] [address] Liane Mccormack DO [address] [place] [address] Hospital discharge follow-up*; Pneumonia due to other specified bacteria (HCC); Glioblastoma multiforme of frontal lobe (HCC); Memory changes; COVID Allergies Active Allergy Reactions Criticality Noted Date Comments Sulfa Antibiotics Hives High 04/30/2015 Itchy eyes Sulfate Itching 03/24/2019 documented as of this encounter (statuses as of 11/23/2023) Medications Medication Sig Dispensed Refills Start Date [...] before bedtime. 30 Tab 3 03/24/2019 Active Cefdinir 300 MG Oral Capsule (Omnicef) Take 1 Capsule by mouth in the morning and 1 Capsule before bedtime. For 5 days. 0 11/14/2023 Active Doxycycline Hyclate 100 MG Oral Capsule Take 1 Capsule by mouth in the morning and 1 Capsule before bedtime. For 5 days. 0 11/14/2023 Active documented as of this encounter (statuses as of 11/23/2023) Active Problems Problem Noted Date Diagnosed Date Glioblastoma multiforme of frontal lobe 09/10/20 23 documented as of this encounter (statuses as of 11/23/2023) Immunizations Name Administration Dates Next Due TDAP (age 10 and older)(Boostrix) 10/16/2016 documented as of this encounter Social History Tobacco Use Types Packs/Day Years Used Date Smoking Tobacco: Never Passive Smoke Exposure: Past Smokeless Tobacco: Never Tobacco Cessation:Counseling Given: Not Answered Alcohol Use Standard Drinks/Week Comments No 0 [...] on file documented as of this encounter Last Filed Vital Signs Vital Sign Reading Time Taken Comments Blood Pressure 110/78 11/23/2023 11:15 AM EST Pulse 82 11/23/2023 11:15 AM EST Temperature 36.6 C (97.8 F) 11/23/2023 1 1:15 AM EST Respiratory Rate 16 11/23/2023 11:1 5 AM EST Oxygen Saturation 94% 11/23/2023 11: 15 AM EST Inhaled Oxygen Concentration - - Weight 59.4 kg (130 lb 14.4 oz) 024 11:15 AM EST Height 157.5 cm (5' 2") 11/23/2023 11:1 5 AM EST Body Mass Index 23.94 11/23/2023 11:15 AM EST documented in this encounter Progress Notes * Liane Mccormack, - 11/23/2023 11:16 AM EST Subjective: Miriam Denis is a 68 year old female. Chief Complaint Patient presents with Hospital Follow-Up covid HPI: 68 year old female presents today with her for a hospital follow-up. Patient has recent diagnosis of Glioblastoma, and s/p removal in August 2023 and undergoing chemo. On Nov 2 developed upper respiratory symptoms and went to urgent care and got diagnosed with COVID> she as not able to to eat and or drink due to being ill, and could not take the Paxlovid, so herhusband took her to the ER. She had required oxygen. She was admitted to the Telemetry floor and started on dexamethasone and Remdesivir for COVID. She was found to have pneumonia as well. No PE> and sent home on oral antibiotics Doxy and Cefdinir. She was able to complete the medications Has lost 10 lbs, Had 15 rounds of oral chemo pills. She sees [facility] in 2 weeks, and get another MRI. Had 15 rounds of radiation PHM: Patient Active Problem List Diagnosis Code Glioblastoma multiforme of frontal lobe (HCC) C71.1 Current Outpatient Medications Medication Sig Dispense Refill Ascorbic Acid (VITAMIN C) 500 MG chewable tablet Take 1 Tablet by mouth in the morning and 1 Tabletbefore bedtime. (Patient not taking: Reported on 11/23/2023) 60 Tab 0 Calcium-Vitamin D-Vitamin K (VIACTIV) 500-500-40 MG-UNT-MCG per chew tablet Take 1 Tablet by mouth in the morning and 1 Tablet before bedtime. (Patient not taking: Reported on 11/23/2023) 30 Tab 3 Cefdinir 300 MG Oral Capsule (Omnicef) Take 1 Capsule by mouth in the morning and 1 Capsule before bedtime. For 5 days. (Patient not taking: Reported on 11/23/2023) Doxycycline Hyclate 100 MG Oral Capsule Take 1 Capsule by mouth in the morning and 1 Capsule beforebedtime. For 5 days. (Patient not taking: Reported on 11/23/2023) No current facility-administered medications for this visit. Review of patient's allergies indicates: Allergen Reactions Sulfa Antibiotics Hives Itchy eyes Sulfate Itching Objective: BP 110/78 | Pulse 82 | Temp 36.6 C (97.8 F) (Temporal Artery) | Resp 16 | Ht 1.575 m (5' 2") | Wt 59.4 kg (130 lb 14.4 oz) | SpO2 94% | BMI 23.94 kg/m | BSA 1.61 m Physical Exam: General: alert, healthy, and no distress Heart: regular rate & rhythm, no murmur, and no gallops Lungs: chest symmetric with normal AP diameter, no chest deformities noted, no chest wall tenderness, lungs clear to auscultation Neuro Exam: she is able to answer simple questions. Some of her sentences were not making sense. ASSESSMENT/PLAN: Hospital discharge follow-up (Primary) Pneumonia due to other specified bacteria (HCC) Glioblastoma multiforme of frontal lobe (HCC) Memory changes COVID Improved. Lungs clear. To keep oncology appts already arranged Liane Mccormack DO documented in this encounter Nursing Notes * Mirela Mackay CCMA - 11/23/2023 11:15 AM EST Miriam Denis is a 68 year old female who presents today for Chief Complaint Patient presents with Hospital Follow-Up covid documented in this encounter Plan of Treatment Upcoming Encounters Date Type Department Care Team (Late st Contact Info) Description 01/18/2024 10:10 AM EDT Office Visit [facility] [address] [place] [phone] Liane Mccormack DO [address], [place] [phone] Scheduled Procedures Name Priority Associated Diagnoses Date/Ti me COLONOSCOPY FLEXIBLE PROXIMA L DIAGNOSTIC Recall Screening for colon cancer Health Maintenance Due Date Last Done Comments DXA Scan 1955 Hepatitis C Screening 1974 Cologuard 2001 Fecal Occult Blood Test 2001 Sigmoidoscopy 2001 Zoster Vaccines (1 of 2) 2006 Depression Screening 03/24/2020 03/24/2019 Pneumococcal Vaccine: 65+ Years (1 - PCV) 2021 COVID-19 Vaccine ( - 2022-24 season) 2023 07/15/2022, 04/28/2022, 09/19/2021, Additional history exists Influenza Vaccine (FLU shot) (#1) 2023 09/22/2022, 10/21/2019 Mammogram 10/16/2023 10/16/2022, 06/13, 04/20/2019 Lipid Panel 03/25/2024 03/25/2019 DTaP,Tdap,and Td Vaccines (2 - Td [...] Not on filedocumented as of this encounter Visit Diagnoses Diagnosis Hospital discharge follow-up- Primary Other follow-up examination Pneumonia due to other specified bacteria (HCC) Glioblastoma multiforme of frontal lobe (HCC) Memory changes Memory loss COVID documented in this encounter Care Teams Bit And Shank Department Supervisor Relationship Specialty Start Date End Date Liane Mccormack DO [address] [place] [address] PCP - General Family Medicine 03/24/19 documented as of this encounter
--- OUTSIDE RECORDS SUMMARY | 2023-11-30 11:47 | External Medical Summary | Summary of Care ---
Author Name Unknown Organization [facility] Address [address] [place] [address] Phone [phone] Care Team Providers Care Radio Communications Mechanician Name Role Phone Ksenia Liane Poly VILLA Primary Care Provider [phone] Encounter Details Date Type Department Care Team (Late st Contact Info) Description 11/17/[address] [facility] [address] [place] [address] Alesia Taylor, RN Allergies Active Allergy Reactions Criticality Noted Date Comments Sulfa Antibiotics Hives High 04/30/2015 Itchy eyes Sulfate Itching 03/24/2019 documented as of this encounter (statuses as of 11/17/2023) Medications Medication Sig Dispensed Refills Start Date [...] as of this encounter (statuses as of 11/17/2023) Active Problems Problem Noted Date Diagnosed Date Glioblastoma multiforme of frontal lobe 09/10/20 23 documented as of this encounter (statuses as of 11/17/2023) Immunizations Name Administration Dates Next Due TDAP (age 10 and older)(Boostrix) 10/16/2016 documented as of this encounter Social History Tobacco Use Types Packs/Day Years Used Date Smoking Tobacco: Never Passive Smoke Exposure: Past Smokeless Tobacco: Never Alcohol Use Standard Drinks/Week [...] on file documented as of this encounter Plan of Treatment Upcoming Encounters Date Type Department Care Team (Late st Contact Info) Description 11/23/2023 11:10 AM EST Office Visit [facility] [address] [place] [phone] Liane Mccormack DO [address] [place] [address] 01/18/2024 10:10 AM EDT Office Visit [facility] [address] [place] [phone] Liane Mccormack DO [address] [place] [address] Scheduled Procedures Name Priority Associated Diagnoses Date/Ti me COLONOSCOPY FLEXIBLE PROXIMA L DIAGNOSTIC Recall Screening for colon cancer Health Maintenance Due Date Last Done Comments DXA Scan 1955 Hepatitis C Screening 1974 Cologuard 2001 Fecal Occult Blood Test 2001 Sigmoidoscopy 2001 Zoster Vaccines (1 of 2) 2006 Depression Screening 03/24/2020 03/24/2019 Pneumococcal Vaccine: 65+ Years (1 - PCV) 2021 COVID-19 Vaccine (2022-24 season) 2023 07/15/2022, 04/28/2022, 09/19/2021, Additional history [...] filedocumented as of this encounter Care Teams Radio Communications Mechanician Relationship Specialty Start Date End Date Liane Mccormack DO [address] [place] [address] PCP - General Family Medicine 03/24/19 documented as of this encounter
--- OUTSIDE RECORDS SUMMARY | 2023-11-30 11:47 | External Medical Summary | Summary of Care ---
Author Name Unknown Organization [facility] Address [address] [facility] [address] Phone [phone] Care Team Providers Care Online Banking Specialist Name Role Phone Dago Mccormacka Poly VILLA Primary Care Provider Reason for Visit * Reason Onset Date Comments Advice 11/18/2023 Encounter Details Date Type Department Care Team (Late st Contact Info) Description 11/18/2023 Telephone [facility]illary [facility] [address] [facility] [address] Alesia Taylor, drafter tool design Allergies Active Allergy Reactions Criticality Noted Date Comments Sulfa Antibiotics Hives High 04/30/2015 Itchy eyes Sulfate Itching 03/24/2019 documented as of this encounter (statuses as of 11/20/2023) Medications Medication Sig Dispensed Refills Start Date [...] as of this encounter (statuses as of 11/20/2023) Active Problems Problem Noted Date Diagnosed Date Glioblastoma multiforme of frontal lobe 09/10/20 23 documented as of this encounter (statuses as of 11/20/2023) Immunizations Name Administration Dates Next Due TDAP [...] encounter Miscellaneous Notes * Telephone Encounter - Alesia Taylor RN - 11/18/2023 10:55 AM EST Called pts Osman and informed him that he could open the capsules and mix contents with pudding, yogurt or apple sauce. Told to only mix with small amount to ensure that Miriam was getting complete dose. He will call back if this is unsucessful. documented in this encounter Plan of Treatment Upcoming Encounters Date Type Department Care Team (Late st Contact Info) Description 11/23/2023 11:10 AM EST [address] [phone] Liane Mccormack DO [address] [facility] [place] [address] 01/18/2024 10:10 AM EDT Office Visit [address] [place] [phone] Liane Mccormack DO [address] [place] [address] Scheduled Procedures Name Priority Associated Diagnoses Date/Ti me COLONOSCOPY FLEXIBLE PROXIMA L DIAGNOSTIC Recall Screening for colon cancer Health Maintenance Due Date Last Done Comments DXA Scan 1956 Hepatitis C Screening 1974 Cologuard 2001 Fecal Occult Blood Test 2001 Sigmoidoscopy 2001 Zoster Vaccines (1 of 2) 2006 Depression Screening 03/24/2020 03/24/2019 Pneumococcal Vaccine: 65+ Years (1 - PCV) 2021 COVID-19 Vaccine (6 - 2022- season) 2023 07/15/2022, 04/28/2022, 09/19/2021, Additional history [...] filedocumented as of this encounter Care Teams Online Banking Specialist Relationship Specialty Start Date End Date Liane Mccormack DO [address] [place] [address] PCP - General Family Medicine 03/24/19 documented as of this encounter
--- OUTSIDE RECORDS SUMMARY | 2023-11-30 11:47 | External Medical Summary | Summary of Care ---
Author Name Unknown Organization [facility] Address [address] [facility] [address] Phone [phone] Care Team Providers Care Poising Inspector Name Role Phone Ksenia Liane Poly VILLA Primary Care Provider Reason for Visit * Reason Onset Date Comments Medication Question 11/18/2023 Encounter Details Date Type Department Care Team (Late st Contact Info) Description 11/18/2023 Telephone Ancillary [facility] [address] [facility] [address] Alesia Taylor, rib chopper Question Allergies Active Allergy Reactions Criticality Noted Date Comments Sulfa Antibiotics Hives High 04/30/2015 Itchy eyes Sulfate Itching 03/24/2019 documented as of this encounter (statuses as of 11/18/2023) Medications Medication Sig Dispensed Refills Start Date [...] as of this encounter (statuses as of 11/18/2023) Active Problems Problem Noted Date Diagnosed Date Glioblastoma multiforme of frontal lobe 09/10/20 documented as of this encounter (statuses as of 11/18/2023) Immunizations Name Administration Dates Next Due TDAP [...] encounter Miscellaneous Notes * Telephone Encounter - Liane Mccormack DO - 11/18/2023 10:23 AM EST See mY G message * Telephone Encounter - Alesia Taylor RN - 11/18/2023 9:26 AM EST Pts called. Patient is not able to or refusing to take antibiotics. Has 4 doses left. Cefdinir 300 mg BID x 2 days and Doxycyline 100 mg BID x [address] order for suspension please? Provider to address: address medication request Reason for Call: Medication Question Contact: Telephone Call Contact Type: Medication Outcome: sent to PCP for ordering Face to face time spent with Patient (minutes): 0 Total Time including non face to face (minutes): 10 documented in this encounter Plan of Treatment Upcoming Encounters Date Type Department Care Team (Late st Contact Info) Description 11/23/2023 11:10 AM EST Office Visit [facility] [address] [facility], [place] [address] Liane Mccormack DO [address] [facility] [place] [address] 01/18/2024 10:10 AM EDT Office Visit [facility] [address] [facility], [place] [address] Liane Mccormack, DO [address] [facility] [place] [phone] Scheduled Procedures Name Priority Associated Diagnoses Date/Ti me COLONOSCOPY FLEXIBLE PROXIMA L DIAGNOSTIC Recall Screening for colon cancer Health Maintenance Due Date Last Done Comments DXA Scan 1956 Hepatitis C Screening 1974 Cologuard 2001 Fecal Occult Blood Test 2001 Sigmoidoscopy 2001 Zoster Vaccines (1 of 2) 2006 Depression Screening 03/24/2020 03/24/2019 Pneumococcal Vaccine: 65+ Years (1 - PCV) 2021 COVID-19 Vaccine (6 - season) 2023 07/15/2022, 04/28/2022, 09/19/2021, Additional history [...] filedocumented as of this encounter Care Teams Poising Inspector Relationship Specialty Start Date End Date Liane Mccormack DO [address] [place] [address] PCP - General Family Medicine 03/24/19 documented as of this encounter
--- OUTSIDE RECORDS SUMMARY | 2023-11-30 11:47 | External Medical Summary | Summary of Care ---
Author Name Unknown Organization [facility] Address [address] [place] [address] Phone [phone] Care Team Providers Care Butane Compressor Operator Name Role Phone Tonyakyara Liane Poly VILLA Primary Care Provider Reason for Visit * Reason Onset Date Comments Hospital Follow-Up 11/16/2023 MI Encounter Details Date Type Department Care Team (Late st Contact Info) Description 11/16/2023 Telephone Ancillary [facility] [address] [place] [address] Alesia Taylor, SHA Hospital Follow-Up (MI) Allergies Active Allergy Reactions Criticality Noted Date [...] Telephone Encounter - Alesia Taylor RN - 11/17/2023 10:20 AM EST Images from the original note were not included. Transitions of Care Note Reason for Referral:Recent Admission Phone visit for follow up: MI # 2 Pts returned call Admitted to: [facility], Date: 11/13 Discharged to: Home self care, Date: 11/14 Diagnosis driving hospitalization: Covid-19 Pneumonia Source/Contact: Spouse SUBJECTIVE Consent: Verbal consent for review of hospital discharge: Yes REVIEW OF SYSTEMS Patient/Other Reports: Current patient/caregiver problems or concerns: Biggest concern is difficulty with swallowing doxycyline. CV: Denies problems Pulmonary: Cough- non productive Chills/Sweats/Fever:Denies chills/sweats Denies fever Appetite:decreased Current diet: regular Bowel: denies problems Bladder: denies problems Wound (If applicable): N/A Pain:Denies Sleep:Denies problems FUNCTIONAL STATUS: ADL'S: Needs Assistance With:Bathing and Dressing IADL'S: Needs Assistance With:Grocery Shopping, Cooking food, Routine Housework, Using telephone, Taking medications, Attending to safety, and Managing money Cognitive and Mental Health: denies problems, alert and oriented x 3, short-term memory loss, and able to communicate, understand some instructions, process some information MEDICATION RECONCILIATION Medications: Discharge med list reviewed with patient or caregiver Reviewed and updated all prescription and OTC medications in Epic New medication(s) filled since hospitalization- see below ASSESSMENT Medication Risk Assessment: No risks identified Did patient fail outpatient treatment? No Discharge instructions available for review? Yes PLAN Symptom Monitoring Interventions:Member/caregiver education - signs and symptoms to contact PrimaryCare (DO NOT DELETE-Three hodge symptoms patient is to report to PCP) 1. Fever greater than 101 2. Increasing or productive cough 3. Increase in confusion Alemite OperatorTimber Spotter of Care interventions/Action Plan: Medication reconciliation and 5 - 7 day follow-up with PCP in place - Date: Dr. Mccormack 11/23 at 11am Educated on role of MI completed with patient/caregiver. Educated patient/caregiver on patient right to have input on MI plan of care. Verification of Home Health/DME if indicated: NO N/A Identified Care Gaps: Yes Care Gaps closed this call: Appointment made or confirmed and Transition of Care follow-up communication Re-evaluation of Plan of Care and progress towards goals achievement: Patient education this visit: Verbal, Encouraged increase of fluids, encourage to cough and deep breath hourly, ambulate as able.Take probiotics while on antibiotics. Plan to discharge needs met, verbalizes understanding and agrees with plan. Alesia Patricio RN * Telephone Encounter - Alesia Taylor RN - 11/16/2023 9:37 AM EST Transitions of Care Note Reason for Referral:Recent Admission Phone visit for follow up: MI # 1. Left message asking patient to return call to discuss hospitalization, medications and follow up appointments. Will attempt to call again tomorrow 11/17 Admitted to: [facility], Date: 11/13 Discharged to: Home self care, Date: 11/14 Diagnosis driving hospitalization: Covid-19 infection pneumonia documented in this encounter Plan of Treatment Upcoming Encounters Date Type Department Care Team (Late st Contact Info) Description 11/23/2023 11:10 AM EST Office Visit [facility] [address] [facility], [place] [phone] Liane Mccormack, DO [address] [facility] [address] 01/18/2024 10:10 AM EDT Office Visit [facility] [address] [facility], [place] [phone] Liane Mccormack, DO [address] [facility] [phone] Scheduled Procedures Name Priority Associated Diagnoses Date/Ti [...] filedocumented as of this encounter Care Teams Butane Compressor Operator Relationship Specialty Start Date End Date Liane Mccormack DO [address] [place] [address] PCP - General Family Medicine 03/24/19 documented as of this encounter
--- NOTE | 2023-11-30 11:57 | CT Scan Report ---
CT head/brain wo con CLINICAL HISTORY: headache, tumor history Technique: Contiguous axial CT images of the head were acquired from the base of the skull to the ilene fred without intravenous contrast administration. Images were viewed in brain, subdural and [facility]. Automated dose lowering techniques and/or adjustment according to patient size were utilized for this exam. Comparison: Comparison is made to CT head 11/12/2023 Findings: Postsurgical changes are again seen in the left frontal lobe. There is associated dural thickening an d encephalomalacia of the left frontal lobe. Right maxillary sinus disease is seen. The orbits appear normal. There are no acute fractures of the calvaria or scalp swelling. Impression: No acute intracranial hemorrhage, no evidence of acute territorial infarction or other acute intracra nial disease process. Postsurgical changes are seen as above without definite evidence of underlying mass. ACT 112: Negative or not required by law. Electronically signed by: Bridger Wolfe M.D. 11/30/2023 11:54 AM
--- NOTE | 2023-11-30 12:03 | CT Scan Report ---
HEAD CTA HISTORY: neck pain, headache TECHNIQUE: Multiaxial CT images of the head were performed following the intravenous administration o f contrast to evaluate the major cerebral vessels. 3D/MIP images were also obtained. Sagittal and co bianca reformats were reviewed. A dose lowering technique was utilized adhering to the principles of A VINCENT. COMPARISON: None. FINDINGS: There is no mass, hematoma, midline shift, or acute infarct. Visualized intracranial internet marketing strategist al carotid arteries, distal vertebral arteries, and basilar artery are widely patent. There is no sig nificant stenosis, occlusion, or aneurysm seen within the bilateral ACAs, MCAs, or development advisor. Major dural venous sinuses are patent. Left frontal craniotomy with underlying dural thickening encephalomalacia. This is better appreciated on the same day head CT. Mild calcified plaque within the bilateral carot id siphons. IMPRESSION: 1. No significant stenosis, occlusion, or aneurysm within the [place] of [place]. 2. Left frontal craniotomy. This is better appreciated on the same day head CT. ACT 112: Negative or not required by law. Electronically signed by: Andrew Horta M.D. 11/30/2023 12:02 PM
--- NOTE | 2023-11-30 12:18 | CT Scan Report ---
CT cervical spine wo con CLINICAL HISTORY: 68 years-old Female with pain, hist of radiation. Acute neck pain without reported trauma COMPARISON: CTA neck of same day TECHNIQUE: Multiple axial CT images of the cervical spine were obtained without contrast. A dose low ering technique was utilized adhering to the principles of ALARA. FINDINGS: Multilevel degenerative degenerative changes of the cervical spine include moderate interve rtebral disc space narrowing and spondylitic spurring at C5-C6 and C6-C7. Multilevel facet arthrosis, severe at C7-T1 and T1-T2. No acute fracture or subluxation identified. Suboptimal evaluation of the central canal and neural foramina by CT technique. The cervical soft tissues appear unremarkable. The visualized lung apices appear clear. IMPRESSION: No acute cervical spine fracture or subluxation. ACT 112: Negative or not required by law. The above report was generated using voice recognition software. It may contain grammatical, syntax o r spelling errors. Electronically signed by: Akbar Laboy M.D. 11/30/2023 12:17 PM
--- NOTE | 2023-11-30 12:22 | CT Scan Report ---
CT angio neck with con CLINICAL HISTORY: 68 years-old Female with neck pain, headache. Acute headache with right-sided ne ck pain COMPARISON STUDY: CT cervical spine of same day, CTA head of same day TECHNIQUE: Following the IV administration of 112 mL of Optiray, CT angiogram of the neck was perform ed from the aortic arch to the skull base. Images are reviewed in the axial, sagittal, and coronal pl anes. 3-D MIPS images are created and assessed. IV contrast was administered without complication. Al l measurements were calculated based on NASCET criteria. A dose lowering technique was utilized adhe ring to the principles of ALARA. CT DOSE: 1530.41 mGy.cm FINDINGS: Three-vessel morphology of the thoracic aortic arch. Patency of the innominate and image subclavian a rteries. The common and internal carotid arteries are also widely patent. The vertebral arteries are codominant and widely patent. No aneurysm, dissection, high-grade stenosis or arterial occlusion. Mul tilevel degenerative changes of the cervical spine. Lung apices are clear. Unremarkable soft tissues. IMPRESSION:Unremarkable CTA of the neck. ACT 112: Negative or not required by law. The above report was generated using voice recognition software. It may contain grammatical, syntax o r spelling errors. Electronically signed by: Akbar Laboy M.D. 11/30/2023 12:21 PM
--- NOTE | 2023-11-30 13:34 | History & Physical Report ---
Date of Service November 30, 2023 Assessment & Plan (1) Acute neck pain: Plan: This is a 68 y/o female with recently diagnosed glioblastoma s/p resection, chemo, and XRT who presents with neck pain. Neck pain has since resolved and work-up in the ED including imaging was negative for any acute pathology. reports progressive confusion and erratic behavior such that he is no longer able to care for patient at home. ED provider discussed with case manag ement and patient will need to be admitted while placement is pursued. No acute medical concerns at present. Pt has been wandering around the house so may need to consider close supervision if she has similar issues during admission. - Admit to medical floor - Case management consult to assist with placement (2) Glioblastoma of frontal lobe: Plan: Neurosurgery f/u scheduled for next week No acute symptoms at this time Plan Pt seen and reviewed with collaborating physician, Dr. Lopes. Plan of care discussed and as outlined above. Code Status: Full code DVT Prophylaxis: Jori Collins PA-C History of Present Illness Chief Complaint: Neck pain Primary Care Provider: Liane Mccormack DO This is a 68 y/o female with recently diagnosed glioblastoma s/p resection, chemo, and XRT who presents with neck pain. History is mostly obtained from pt's as pt with limited memory of recent events. Pt originally presented for evaluation of expressive aphasia in August. Work-up in the ED revealed a large frontal mass with 12 mm of midline shift. Pt was transferred to [facility] [place] for neurosurgery evaluation and treatment. Pt underwent left frontal craniotomy for tumor resection on 08/20/23. Pathology demonstrated IDH wild-type glioblastoma. Pt was referred for XRT and chemo, which she completed on 11/02/23. She was doing well initially after treatment but was diagnosed with COVID on 11/12/23 and was admitted for hypoxia. She was treated with remdesivir and and dexamethasone and diagnosed with pneumonia, which was treated with antibiotics. Discharged home on 11/14/23 and completed course of antibiotics as outpatient. Her reports that she seems to have recovered from COVID and was doing well until this m orning when he went to help her out of bed and she was complaining of neck pain. Due to this pain and his inability to get her out of bed, he called EMS. In the ED, he told the ED provider that he was no longer able to care for pt at home due to worsening confusion and erratic behavior so he would like to pursue placement. Currently pt denies any pain, stating that the neck pain resolved shortly after getting to the ED. She admits that she does not remember much of the last few months including brain surgery and subsequent treatments. Appetite has been good. No other complaints. Allergies Allergy/AdvReac Type Severity Reaction Status Date / Time Sulfa (Sulfonamide Allergy Intermediate Hives Verified 11/30/23 14:23 Antibiotics) Home Medications Medication Instructions Recorded Confirmed Type No Known Home Medications 11/30/23 11/30/23 History Past Med/Surg History Medical History Pneumonia COVID-19 Glioblastoma of frontal lobe (08/20/23) Diagnosed on 08/20/23 Weakness Surgical History S/P craniotomy Left frontal craniotomy 08/20/23 Dr. Medrano at [facility] [place] History of hysterectomy Family History Mother , in her late 70s Dementia Father , in his late 60s Skin cancer Sister No problems noted. 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 How many Children do You have: 0 Feels Safe at Home: Yes Diet: regular caffeine: No during the past year weight has: remained stable Assistive Devices: Glasses Review of Systems Review of Systems: Limited due to pt's baseline confusion since craniotomy Physical Exam Physical Exam: General: awake, alert, NAD HEENT: no scleral icterus Neck: trachea midline Heart: RRR Lungs: CTA bilaterally Abdomen: soft, +BS Extremities: no edema, distal pulses intact Skin: warm, dry, no jaundice, no rashes Neurologic: strength in UE equal bilaterally, negative Romberg, negative pronator drift, no gait abnormalities noted; oriented only to person, cannot recall date/month or place Results & Data Results & Data Vital Signs (Past 12 Hours) Vital Signs Temp Pulse Pulse Resp BP BP Pulse Ox 11/30/23 12:18 98 11/30/23 10:23 96 H 11/30/23 09:31 96 H 17 144/90 H 98 11/30/23 09:28 36.8 C 94 H 18 144/90 H 97 O2 Del Method O2 Flow Rate 11/30/23 12:18 Room Air 0 11/30/23 10:23 11/30/23 09:31 Room Air 11/30/23 09:28 Room Air Laboratory Results Laboratory Results - last 24 hr 11/30/23 09:33 WBC 10.59 RBC 4.90 Hgb 14.5 Hct 42.9 MCV 87.6 MCH 29.6 MCHC 33.8 RDW Std Deviation 39.6 RDW Coeff of Brock 12.3 Plt Count 257 MPV 11.1 Immature Gran % (Auto) 0.5 Neut % (Auto) 75.4 Lymph % (Auto) 12.9 Anderson % (Auto) 9.4 Eos % (Auto) 1.4 Baso % (Auto) 0.4 Neut # (Auto) 7.98 H Lymph # (Auto) 1.37 Anderson # (Auto) 1.00 H Eos # (Auto) 0.15 Baso # (Auto) 0.04 Immature Gran # (Auto) 0.05 Sodium 139 Potassium 3.6 Chloride 106 Carbon Dioxide 25 Anion Gap 8 BUN 7 Creatinine 0.63 Est Cr Clr Drug Dosing 69.8 Est GFR ( Amer) 107.6 Est GFR (Non-Af Amer) 92.8 BUN/Creatinine Ratio 11.1 Glucose 101 H Calcium 9.6 Magnesium 2.0 Total Bilirubin 0.6 AST 15 ALT 11 Alkaline Phosphatase 70 Troponin I High Sens < 2.3 Total Protein 7.4 Albumin 4.1 Globulin 3.3 Albumin/Globulin Ratio 1.2 Diagnostic Findings Chest X-Ray 11/30/23 10:13 XR chest 1V portable HISTORY: weakness COMPARISON: Chest 11/12/2023. FINDINGS: No pneumothorax. No pleural effusions. A few bibasilar linear densities suggesting subsegmental atelectasis or scarring. Otherwise, no focal lung consolidations to suggest a pneumonia. No evidence for pulmonary edema. The heart is normal in size. No acute fractures. Slightly rotated study. IMPRESSION: No acute process. ACT 112: Negative or not required by law. Electronically signed by: Andrew Horta M.D. 11/30/2023 11:07 AM Head CTA 11/30/23 10:13 HEAD CTA HISTORY: neck pain, headache TECHNIQUE: Multiaxial CT images of the head were performed following the intravenous administration of contrast to evaluate the major cerebral vessels. 3D/MIP images were also obtained. Sagittal and coronal reformats were reviewed. A dose lowering technique was utilized adhering to the principles of ALARA. COMPARISON: None. FINDINGS: There is no mass, hematoma, midline shift, or acute infarct. Visualized intracranial internal carotid arteries, distal vertebral arteries, and basilar artery are widely patent. There is no significant stenosis, occlusion, or aneurysm seen within the bilateral ACAs, MCAs, or club attendant. Major dural venous sinuses are patent. Left frontal craniotomy with underlying dural thickening encephalomalacia. This is better appreciated on the same day head CT. Mild calcified plaque within the bilateral carotid siphons. IMPRESSION: 1. No significant stenosis, occlusion, or aneurysm within the nondalton of Judd. 2. Left frontal craniotomy. This is better appreciated on the same day head CT. ACT 112: Negative or not required by law. Electronically signed by: Andrew Horta M.D. 11/30/2023 12:02 PM Neck CTA 11/30/23 10:13 CT angio neck with con CLINICAL HISTORY: 68 years-old Female with neck pain, headache. Acute headache with right-sided neck pain COMPARISON STUDY: CT cervical spine of same day, CTA head of same day TECHNIQUE: Following the IV administration of 112 mL of Optiray, CT angiogram of the neck was performed from the aortic arch to the skull base. Images are reviewed in the axial, sagittal, and coronal planes. 3-D MIPS images are created and assessed. IV contrast was administered without complication. All measurements were calculated based on NASCET criteria. A dose lowering technique was utilized adhering to the principles of ALARA. CT DOSE: 1530.41 mGy.cm FINDINGS: Three-vessel morphology of the thoracic aortic arch. Patency of the innominate and image subclavian arteries. The common and internal carotid arteries are also widely patent. The vertebral arteries are codominant and widely patent. No aneurysm, dissection, high-grade stenosis or arterial occlusion. Multilevel degenerative changes of the cervical spine. Lung apices are clear. Unremarkable soft tissues. IMPRESSION:Unremarkable CTA of the neck. ACT 112: Negative or not required by law. The above report was generated using voice recognition software. It may contain grammatical, syntax or spelling errors. Electronically signed by: Akbar Laboy M.D. 11/30/2023 12:[address] 11/30/23 10:14 CT head/brain wo con CLINICAL HISTORY: headache, tumor history Technique: Contiguous axial CT images of the head were acquired from the base of the skull to the vertex without intravenous contrast administration. Images were viewed in brain, subdural and bone windows. Automated dose lowering techniques and/or adjustment according to patient size were utilized for this exam. Comparison: Comparison is made to CT head 11/12/2023 Findings: Postsurgical changes are again seen in the left frontal lobe. There is as sociated dural thickening and encephalomalacia of the left frontal lobe. Right maxillary sinus disease is seen. The orbits appear normal. There are no acute fractures of the calvaria or scalp swelling. Impression: No acute intracranial hemorrhage, no evidence of acute territorial infarction or other acute intracranial disease process. Postsurgical changes are seen as above without definite evidence of underlying mass. ACT 112: Negative or not required by law. Electronically signed by: Bridger Wolfe M.D. 11/30/2023 11:[address] 11/30/23 10:22 CT cervical spine wo con CLINICAL HISTORY: 68 years-old Female with pain, hist of radiation. Acute neck pain without reported trauma COMPARISON: CTA neck of same day TECHNIQUE: Multiple axial CT images of the cervical spine were obtained without contrast. A dose lowering technique was utilized adhering to the principles of ALARA. FINDINGS: Multilevel degenerative degenerative changes of the cervical spine include moderate intervertebral disc space narrowing and spondylitic spurring at C5-C6 and C6-C7. Multilevel facet arthrosis, severe at C7-T1 and T1-T2. No acute fracture or subluxation identified. Suboptimal evaluation of the central canal and neural foramina by CT technique. The cervical soft tissues appear unremarkable. The visualized lung apices appear clear. IMPRESSION: No acute cervical spine fracture or subluxation. ACT 112: Negative or not required by law. The above report was generated using voice recognition software. It may contain grammatical, syntax or spelling errors. Electronically signed by: Akbar Laboy M.D. 11/30/2023 12:17 PM Medications Administered Discontinued Medications Sodium Chloride (Nss) 500 mls @ 999 mls/hr IV .Q31M MARY Stop: 11/30/23 10:45 Last Infusion: 11/30/23 11:20 Dose: Infused Documented By: Admin: 11/30/23 10:40 Dose: 999 mls/hr Documented By: AYLIN Acetaminophen (Ofirmev) 1,000 mg in 100 mls @ 400 mls/hr IV NOW STA Stop: 11/30/23 10:28 Last Infusion: 11/30/23 11:20 Dose: Infused Documented By: Admin: 11/30/23 10:38 Dose: 400 mls/hr Documented By: AYLIN Ioversol (Optiray 320 125ml) 112 ml IV ONCE ONE Stop: 11/30/23 11:27 Last Admin: 11/30/23 11:26 Dose: 112 ml Documented By: BECCA Code Status & VTE Plan VTE Prophylaxis Plan VTE Prophylaxis will be ordered: Yes Supervising Physician Co-Signing Physician Notes Attending addendum: The patient was seen and examined in emergency room in presence of the She has been having more memory impairment at home and cannot be taken care of at home by the anymore Also she has been complaining of neck pain do not know whether she has had a fall or not But the patient does not have any symptoms to complain He remains otherwise hemodynamically stable On examination Lying in bed comfortably No apparent distress at rest Chestclear to auscultate bilaterally Heart-S1-S2, regular Abdomen-benign Extremities-negative for any edema 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 Totally disoriented without any aggressiveness. Moving all limbs equally Her admission labs, imaging studies EKGs and medications reviewed Examined part of the skeletal system did not show any evidence of fracture Significant memory impairment and has been difficult to take care of her at home History of glioblastoma multiforme he has been ongoing radiation Likely would need placement Agree with assessment plan as outlined above by DORY Graham Dr
--- NOTE | 2023-11-30 14:10 | Electrocardiogram Report ---
Test Reason : Blood Pressure : / mmHG Vent. Rate : 091 BPM Atrial Rate : 091 BPM P-R Int : 096 ms QRS Dur : 072 ms QT Int : 342 ms P-R-T Axes : 019 017 034 degrees QTc Int : 420 ms Sinus rhythm Otherwise normal ECG When compared with ECG of 14-NOV-2023 04:39, No significant change was found Confirmed by Kai Benitez ([id number]) on 11/30/2023 2:09:46 PM Referred By: REFERRED SELF Confirmed By:Brady Benitez
[2023-11-30] MEDS ORDERED: ACETAMINOPHEN 325 MG TAB PO PRN (16:08)
[2023-12-01 06:22] LABS: Appearance Urine Clear (Clear); Bacteria Urine Automated Negative (Negative); Bilirubin Urine Negative (Negative); Blood Urine Negative (Negative); Cast Urine Automated 0 /lpf (0-5); Color Urine Orange; Glucose Urine UA Negative (Negative); Ketones Urine Trace (Negative); Leukocyte Esterase Urine Trace (Negative); Nitrite Urine Negative (Negative); Protein Urine Negative (Negative); RBC Urine Automated 0-4 /hpf (0-4); Specific Gravity Urine 1.016 (1.000-1.030); Urobilinogen Urine Negative (Negative)
[2023-12-01] MEDS: ENOXAPARIN INJ 40 MG/0.4 ML SYR SQ SCH (08:52)
--- NOTE | 2023-12-01 15:26 | Hospitalist Progress Note ---
Date of Service December 01, 2023 Assessment & Plan (1) Acute neck pain: Plan: Patient is a 68 y/o female with recently diagnosed glioblastoma s/p resection, chemo, and XRT who presents with neck pain. Neck pain has since resolved and work-up in the ED including imaging was negative for any acute pathology. reports progressive confusion and erratic behavior such that he is no longer able to care for patient at home. PT OT ordered Possible DC to rehab when placement is available (2) Glioblastoma of frontal lobe: Plan: Neurosurgery f/u scheduled for next week No acute symptoms at this time Plan Code Status: Full code DVT Prophylaxis: Lovenox Please note the above document was generated using voice recognition software. It may contain grammatical, syntax or spelling errors. Any formal questions or concerns about the content, text or information contained within the body of this dictation should be directly addressed to the provider for clarification Admission and Anticipated Discharge Date Admission Date: November 30, 2023 Subjective Patient seen and examined at bedside. She is comfortably lying on the bed; not in distress. Denies any pain or discomfort Review of Systems Review of Systems: All systems reviewed & are unremarkable except as noted in Subjective Results & Data Results & Data Vital Signs (Past 12 Hours) Vital Signs Temp Pulse Resp BP Pulse Ox O2 Del Method 12/01/23 15:07 37.0 C 94 H 16 115/78 96 Room Air 12/01/23 07:56 36.7 C 88 16 125/81 97 Room Air
--- NOTE | 2023-12-02 12:04 | Hospitalist Progress Note ---
Date of Service December 02, 2023 Assessment & Plan (1) Acute neck pain: Plan: Patient is a 68 y/o female with recently diagnosed glioblastoma s/p resection, chemo, and XRT who presents with neck pain. Neck pain has since resolved and work-up in the ED including imaging was negative for any acute pathology. reports progressive confusion and erratic behavior such that he is no longer able to care for patient at home. Labs from admission reviewed; no acute findings. Patient underwent imaging including head CT, head and neck CTA and cervical CT which did not show any acute findings. Possible DC to rehab/memory care unit when placement is available (2) Glioblastoma of frontal lobe: Plan: Neurosurgery f/u scheduled for next week No acute symptoms at this time Plan Code Status: Full code DVT Prophylaxis: Lovenox Please note the above document was generated using voice recognition software. It may contain grammatical, syntax or spelling errors. Any formal questions or concerns about the content, text or information contained within the body of this dictation should be directly addressed to the provider for clarification Admission and Anticipated Discharge Date Admission Date: November 30, 2023 Subjective Patient seen and examined at bedside. Comfortable; not in distress. Denies fever, chills, chest pain, shortness of breath, abdominal pain or urinary symptoms. No significant overnight events Review of Systems Review of Systems: All systems reviewed & are unremarkable except as noted in Subjective Physical Exam Physical Exam: Constitutional: Awake, alert oriented to self. Needs frequent redirection Respiratory: normal respiratory effort, lungs clear to auscultation, no wheeze, rales, rhonchi. Normal insp/exp effort, no accessory muscle use Cardiovascular: RRR, no murmur, no edema Vessels: no JVD or carotid bruit Chest: normal inspection of chest Abdomen: normal bowel sounds, soft, nontender, no hepatosplenomegaly Musculoskeletal: no cyanosis or clubbing, extremities motor strength 5/5 Skin: no rashes, warm and dry normal turgor Neurologic: Grossly intact Results & Data Results & Data Vital Signs (Past 12 Hours) Vital Signs Temp Pulse Resp BP Pulse Ox O2 Del Method 12/02/23 08:10 36.9 C 89 18 116/87 97 Room Air
--- NOTE | 2023-12-03 13:28 | Hospitalist Progress Note ---
Date of Service December 03, 2023 Assessment & Plan (1) Acute neck pain: Plan: Patient is a 68 y/o female with recently diagnosed glioblastoma s/p resection, chemo, and XRT who presents with neck pain. Neck pain has since resolved and work-up in the ED including imaging was negative for any acute pathology. reports progressive confusion and erratic behavior such that he is no longer able to care for patient at home. Labs from admission reviewed; no acute findings. Patient underwent imaging including head CT, head and neck CTA and cervical CT which did not show any acute findings. Possible DC to rehab/memory care unit when placement is available As per patient's ; her Neuro-oncology (Dr. Redmond) wanted a routine MRI brain with and without contrast for follow-up. Orders placed. (2) Glioblastoma of frontal lobe: Plan: Neurosurgery f/u scheduled for next week No acute symptoms at this time Plan Code Status: Full code DVT Prophylaxis: Lovenox Please note the above document was generated using voice recognition software. It may contain grammatical, syntax or spelling errors. Any formal questions or concerns about the content, text or information contained within the body of this dictation should be directly addressed to the provider for clarification Admission and Anticipated Discharge Date Admission Date: November 30, 2023 Subjective Patient seen and examined at bedside. Comfortable; not in distress. Denies fever, chills, chest pain, shortness of breath, abdominal pain or urinary symptoms. No significant overnight events Physical Exam Physical Exam: Constitutional: Awake, alert oriented to self. Needs frequent redirection Respiratory: normal respiratory effort, lungs clear to auscultation, no wheeze, rales, rhonchi. Normal insp/exp effort, no accessory muscle use Cardiovascular: RRR, no murmur, no edema Vessels: no JVD or carotid bruit Chest: normal inspection of chest Abdomen: normal bowel sounds, soft, nontender, no hepatosplenomegaly Musculoskeletal: no cyanosis or clubbing, extremities motor strength 5/5 Skin: no rashes, warm and dry normal turgor Neurologic: Grossly intact Results & Data Results & Data Vital Signs (Past 12 Hours) Vital Signs Temp Pulse Resp BP Pulse Ox O2 Del Method 12/03/23 07:38 36.8 C 78 16 113/75 98 Room Air
[2023-12-03] MEDS: GADOBUTROL 65ML VIAL IV ONE (17:52)
--- NOTE | 2023-12-04 07:58 | Magnetic Resonance Report ---
MRI OF THE BRAIN WITHOUT AND WITH IV CONTRAST CLINICAL HISTORY: hx of glioblastoma s/p surgery. COMPARISON STUDY: Head CT and CTA of the head November 30, 2023. MRI of the brain August 23, 2023. TECHNIQUE: Utilizing a 1.5 Sunita magnet and dedicated coil, multiplanar, multiecho imaging of the br ain was performed pre and postcontrast administration. IV administration of 6 mL of Gadavist contras t was uneventful. Thin cut T1 post contrast imaging was performed. FINDINGS: There are no foci of restricted diffusion to suggest acute infarct. Left frontal craniotomy is noted. Operative bed fluid collection has significantly decreased in size since MRI of August 122022, now measuring 3.5 x 1 cm. Edema within the left frontal lobe with associated mass effect has significantly decreased since postoperative MRI of August 23, 2023. Compression on the left latera l ventricle has resolved. Ventricular system is stable since prior CT of November 30, 2023. Basal cis terns are patent. Dural enhancement within the operative bed is likely postsurgical. Nodular enhancem ent within the posterior aspect of the operative bed, involving the left frontal lobe and genu of the corpus callosum measures 3.1 x 2.8 x 1.2 cm in extent. This enhancement was present on postoperative MRI of August 23, 2023. The extent of enhancement is similar to that exam. Developmental venous an omaly within the right cerebellar hemisphere is incidentally noted. IMPRESSION: 1. No acute intracranial findings. 2. Status post left frontal craniotomy. Decrease in size of the operative bed fluid collection with s ignificant decrease in vasogenic edema and associated mass effect within the left frontal lobe since postoperative MRI of August 23, 2023. Operative bed dural enhancement is likely postsurgical. 3. Nodular enhancement within the posterior aspect of the operative bed, involving the left frontal l obe and genu of the corpus callosum, as described above. This is similar to postoperative MRI of Reema deras 2022 and favors residual tumor. Postoperative change/radiation necrosis could appear similar although is considered less likely. ACT 112: Negative or not required by law. Electronically signed by: Raymundo Lundy M.D. 12/04/2023 7:56 AM
--- NOTE | 2023-12-04 10:52 | Discharge Summary ---
Discharge Summary Date of Service December 04, 2023 Notes For Next Care Provider Medication Changes From Visit None Admission HPI Per Admitting Provider This is a 68 y/o female with recently diagnosed glioblastoma s/p resection, chemo, and XRT who presents with neck pain. History is mostly obtained from pt's as pt with limited memory of recent events. Pt originally presented for evaluation of expressive aphasia in August. Work-up in the ED revealed a large frontal mass with 12 mm of midline shift. Pt was transferred [place] [facility] [place] and treatment. Pt underwent left frontal craniotomy for tumor resection on 08/20/23. Pathology demonstrated IDH wild-type glioblastoma. Pt was referred for XRT and chemo, which she completed on 11/02/23. She was doing well initially after treatment but was diagnosed with COVID on 11/12/23 and was admitted for hypoxia. She was treated with remdesivir and and dexamethasone and diagnosed with pneumonia, which was treated with antibiotics. Discharged home on 11/14/23 and completed course of antibiotics as outpatient. Her reports that she seems to have recovered from COVID and was doing well until this morning when he went to help her out of bed and she was complaining of neck pain. Due to this pain and his inability to get her out of bed, he called EMS. In the ED, he told the ED provider that he was no longer able to care for pt at home due to worsening confusion and erratic behavior so he would like to pursue placement. Currently pt denies any pain, stating that the neck pain resolved shortly after getting to the ED. She admits that she does not remember much of the last few months including brain surgery and subsequent treatments. Appetite has been good. No other complaints. Admission Exam Per Admitting Provider General: awake, alert, NAD HEENT: no scleral icterus Neck: trachea midline Heart: RRR Lungs: CTA bilaterally Abdomen: soft, +BS Extremities: no edema, distal pulses intact Skin: warm, dry, no jaundice, no rashes Neurologic: strength in UE equal bilaterally, negative Romberg, negative pronator drift, no gait abnormalities noted; oriented only to person, cannot recall date/month or place Principal Dx & Hospital Course #1 = Principal Diagnosis (1) Acute neck pain: Patient is a 68 y/o female with recently diagnosed glioblastoma s/p resection, chemo, and XRT who presents with neck pain. Neck pain has since resolved and w ork-up in the ED including imaging was negative for any acute pathology. reports progressive confusion and erratic behavior such that he is no longer able to care for patient at home. Labs from admission reviewed; no acute findings. Patient underwent imaging including head CT, head and neck CTA and cervical CT which did not show any acute findings. Possible DC to rehab/memory care unit when placement is available As per patient's ; her Neuro-oncology (Dr. Redmond) wanted a routine MRI brain with and without contrast for follow-up. Orders placed. (2) Glioblastoma of frontal lobe: Neurosurgery f/u scheduled for next week No acute symptoms at this time Plan Code Status: Full code DVT Prophylaxis: Lovenox Please note the above document was generated using voice recognition software. It may contain grammatical, syntax or spelling errors. Any formal questions or concerns about the content, text or information contained within the body of this dictation should be directly addressed to the provider for clarification Discharge Exam General- oriented x 3, not in distress, speaks in sentences with no effort or accessory muscle use Eyes- anicteric Neck- no JVD Lungs- clear breath sounds bilaterally, no rales/wheezes Heart- normal rate, regular rhythm; no murmurs Abdomen- normal bowel sounds, nondistended, soft, nontender Extremities- no pretibial edema, no calf tenderness Neuro- alert, oriented x 3; no gross focal neurologic deficits Skin- warm & dry Updated Medication List Medication Instructions Recorded Confirmed Type No Known Home Medications 11/30/23 11/30/23 History Hospital Stay Data Consultations 11/30/23 12:54 ED Decision to Admit Stat Diagnostic Imagining Performed Laboratory Results WBC 10.59 K/ul (4.8-10.8) 11/30/23 09:33 RBC 4.90 M/uL (4.20-5.40) 11/30/23 09:33 Hgb 14.5 g/dl (12.0-16.0) 11/30/23 09:33 Hct 42.9 % (37.0-47.0) 11/30/23 09:33 MCV 87.6 fL (80.0-100.0) 11/30/23 09:33 MCH 29.6 pg (25.0-34.0) 11/30/23 09:33 MCHC 33.8 g/dL (32.0-36.0) 11/30/23 09:33 RDW Std Deviation 39.6 fL (36.4-46.3) 11/30/23 09:33 RDW Coeff of Brock 12.3 % (11.5-14.5) 11/30/23 09:33 Plt Count 257 K/uL (130-400) 11/30/23 09:33 MPV 11.1 fL (9.4-12.4) 11/30/23 09:33 Immature Gran % (Auto) 0.5 % 11/30/23 09:33 Neut % (Auto) 75.4 % 11/30/23 09:33 Lymph % (Auto) 12.9 % 11/30/23 09:33 Hendricks % (Auto) 9.4 % 11/30/23 09:33 Eos % (Auto) 1.4 % 11/30/23 09:33 Baso % (Auto) 0.4 % 11/30/23 09:33 Neut # (Auto) 7.98 K/uL (1.40-6.50) H 11/30/23 09:33 Lymph # (Auto) 1.37 K/uL (1.20-3.40) 11/30/23 09:33 Hendricks # (Auto) 1.00 K/uL (0.11-0.59) H 11/30/23 09:33 Eos # (Auto) 0.15 K/uL (0.00-0.50) 11/30/23 09:33 Baso # (Auto) 0.04 K/uL (0.00-0.20) 11/30/23 09:33 Immature Gran # (Auto) 0.05 K/uL (0.01-0.20) 11/30/23 09:33 Sodium 139 mmol/L (136-145) 11/30/23 09:33 Potassium 3.6 mmol/L (3.5-5.1) 11/30/23 09:33 Chloride 106 mmol/L (98-107) 11/30/23 09:33 Carbon Dioxide 25 mmol/L (21-32) 11/30/23 09:33 Anion Gap 8 (3-11) 11/30/23 09:33 BUN 7 mg/dl (6-23) 11/30/23 09:33 Creatinine 0.63 mg/dl (0.6-1.2) 11/30/23 09:33 Est Cr Clr Drug Dosing 69.8 ml/min 11/30/23 09:33 Est GFR ( Amer) 107.6 ml/min 11/30/23 09:33 Est GFR (Non-Af Amer) 92.8 ml/min 11/30/23 09:33 BUN/Creatinine Ratio 11.1 (10-20) 11/30/23 09:33 Glucose 101 mg/dl (70-99(Fasting)) H 11/30/23 09:33 Calcium 9.6 mg/dl (8.6-10.3) 11/30/23 09:33 Magnesium 2.0 mg/dl (1.7-2.4) 11/30/23 09:33 Total Bilirubin 0.6 mg/dl (0.2-1.0) 11/30/23 09:33 AST 15 U/L (13-39) 11/30/23 09:33 ALT 11 U/L (7-52) 11/30/23 09:33 Alkaline Phosphatase 70 U/L (34-104) 11/30/23 09:33 Troponin I High Sens < 2.3 pg/ml (0-14) 11/30/23 09:33 Total Protein 7.4 gm/dl (6.0-8.3) 11/30/23 09:33 Albumin 4.1 gm/dl (3.4-5.0) 11/30/23 09:33 Globulin 3.3 gm/dl (2.5-4.0) 11/30/23 09:33 Albumin/Globulin Ratio 1.2 (0.9-2) 11/30/23 09:33 Urine Color [place] 12/01/23 06:02 Urine Appearance Clear (Clear) 12/01/23 06:02 Urine pH 6.0 (4.5-7.5) 12/01/23 06:02 Ur Specific [place] 1.016 (1.000-1.030) 12/01/23 06:02 Urine Protein Negative (Negative) 12/01/23 06:02 Urine Glucose (UA) Negative (Negative) 12/01/23 06:02 Urine Ketones Trace (Negative) H 12/01/23 06:02 Urine Blood Negative (Negative) 12/01/23 06:02 Urine Nitrite Negative (Negative) 12/01/23 06:02 Urine Bilirubin Negative (Negative) 12/01/23 06:02 Urine Urobilinogen Negative (Negative) 12/01/23 06:02 Ur Leukocyte Esterase Trace (Negative) H 12/01/23 06:02 Urine WBC (Auto) 1-5 /hpf (0-5) 12/01/23 06:02 Urine RBC (Auto) 0-4 /hpf (0-4) 12/01/23 06:02 U Hyaline Cast (Auto) 0 /lpf (0-5) 12/01/23 06:02 U Epithel Cells (Auto) 10-20 /lpf (0-5) H 12/01/23 06:02 Urine Bacteria (Auto) Negative (Negative) 12/01/23 06:02 Impressions Chest X-Ray 11/30/23 10:13 XR chest 1V portable HISTORY: weakness COMPARISON: Chest 11/12/2023. FINDINGS: No pneumothorax. No pleural effusions. A few bibasilar linear densities suggesting subsegmental atelectasis or scarring. Otherwise, no focal lung consolidations to suggest a pneumonia. No evidence for pulmonary edema. The heart is normal in size. No acute fractures. Slightly rotated study. IMPRESSION: No acute process. ACT 112: Negative or not required by law. Electronically signed by: Andrew Horta M.D. 11/30/2023 11:07 AM Head CTA 11/30/23 10:13 HEAD CTA HISTORY: neck pain, headache TECHNIQUE: Multiaxial CT images of the head were performed following the intravenous administration of contrast to evaluate the major cerebral vessels. 3D/MIP images were also obtained. Sagittal and coronal reformats were reviewed. A dose lowering technique was utilized adhering to the principles of ALARA. COMPARISON: None. FINDINGS: There is no mass, hematoma, midline shift, or acute infarct. Visualized intracranial internal carotid arteries, distal vertebral arteries, and basilar artery are widely patent. There is no significant stenosis, occlusion, or aneurysm seen within the bilateral ACAs, MCAs, or production planning manager. Major dural venous sinuses are patent. Left frontal craniotomy with underlying dural thickening encephalomalacia. This is better appreciated on the same day head CT. Mild calcified plaque within the bilateral carotid siphons. IMPRESSION: 1. No significant stenosis, occlusion, or aneurysm within the [place] of [place]. 2. Left frontal craniotomy. This is better appreciated on the same day head CT. ACT 112: Negative or not required by law. Electronically signed by: Andrew Horta M.D. 11/30/2023 12:02 PM Neck CTA 11/30/23 10:13 CT angio neck with con CLINICAL HISTORY: 68 years-old Female with neck pain, headache. Acute headache with right-sided neck pain COMPARISON STUDY: CT cervical spine of same day, CTA head of same day TECHNIQUE: Following the IV administration of 112 mL of Optiray, CT angiogram of the neck was performed from the aortic arch to the skull base. Images are reviewed in the axial, sagittal, and coronal planes. 3-D MIPS images are created and assessed. IV contrast was administered without complication. All measurements were calculated based on NASCET criteria. A dose lowering technique was utilized adhering to the principles of ALARA. CT DOSE: 1530.41 mGy.cm FINDINGS: Three-vessel morphology of the thoracic aortic arch. Patency of the innominate and image subclavian arteries. The common and internal carotid arteries are also widely patent. The vertebral arteries are codominant and widely patent. No aneurysm, dissection, high-grade stenosis or arterial occlusion. Multilevel degenerative changes of the cervical spine. Lung apices are clear. Unremarkable soft tissues. IMPRESSION:Unremarkable CTA of the neck. ACT 112: Negative or not required by law. The above report was generated using voice recognition software. It may contain grammatical, syntax or spelling errors. Electronically signed by: Akbar Laboy M.D. 11/30/2023 12:[address] 11/30/23 10:14 CT head/brain wo con CLINICAL HISTORY: headache, tumor history Technique: Contiguous axial CT images of the head were acquired from the base of the skull to the vertex without intravenous contrast administration. Images were viewed in brain, subdural and bone windows. Automated dose lowering techniques and/or adjustment according to patient size were utilized for this exam. Comparison: Comparison is made to CT head 11/12/2023 Findings: Postsurgical changes are again seen in the left frontal lobe. There is associated dural thickening and encephalomalacia of the left frontal lobe. Right maxillary sinus disease is seen. The orbits appear normal. There are no acute fractures of the calvaria or scalp swelling. Impression: No acute intracranial hemorrhage, no evidence of acute territorial infarction or other acute intracranial disease process. Postsurgical changes are seen as above without definite evidence of underlying mass. ACT 112: Negative or not required by law. Electronically signed by: Bridger Wolfe M.D. 11/30/2023 11:[address] 11/30/23 10:22 CT cervical spine wo con CLINICAL HISTORY: 68 years-old Female with pain, hist of radiation. Acute neck pain without reported trauma COMPARISON: CTA neck of same day TECHNIQUE: Multiple axial CT images of the cervical spine were obtained without contrast. A dose lowering technique was utilized adhering to the principles of ALARA. FINDINGS: Multilevel degenerative degenerative changes of the cervical spine include moderate intervertebral disc space narrowing and spondylitic spurring at C5-C6 and C6-C7. Multilevel facet arthrosis, severe at C7-T1 and T1-T2. No acute fracture or subluxation identified. Suboptimal evaluation of the central canal and neural foramina by CT technique. The cervical soft tissues appear unremarkable. The visualized lung apices appear clear. IMPRESSION: No acute cervical spine fracture or subluxation. ACT 112: Negative or not required by law. The above report was generated using voice recognition software. It may contain grammatical, syntax or spelling errors. Electronically signed by: Akbar Laboy M.D. 11/30/2023 12:17 PM Brain MRI 12/03/23 10:56 MRI OF THE BRAIN WITHOUT AND WITH IV CONTRAST CLINICAL HISTORY: hx of glioblastoma s/p surgery. COMPARISON STUDY: Head CT and CTA of the head November 30, 2023. MRI of the brain August 23, 2023. TECHNIQUE: Utilizing a 1.5 Sunita magnet and dedicated coil, multiplanar, multiecho imaging of the brain was performed pre and postcontrast ad ministration. IV administration of 6 mL of Gadavist contrast was uneventful. Thin cut T1 post contrast imaging was performed. FINDINGS: There are no foci of restricted diffusion to suggest acute infarct. Left frontal craniotomy is noted. Operative bed fluid collection has significantly decreased in size since MRI of August 23, 2023, now measuring 3.5 x 1 cm. Edema within the left frontal lobe with associated mass effect has significantly decreased since postoperative MRI of August 23, 2023. Compression on the left lateral ventricle has resolved. Ventricular system is stable since prior CT of November 30, 2023. Basal cisterns are patent. Dural enhancement within the operative bed is likely postsurgical. Nodular enhancement within the posterior aspect of the operative bed, involving the left frontal lobe and genu of the corpus callosum measures 3.1 x 2.8 x 1.2 cm in extent. This enhancement was present on postoperative MRI of August 23, 2023. The extent of enhancement is similar to that exam. Developmental venous anomaly within the right cerebellar hemisphere is incidentally noted. IMPRESSION: 1. No acute intracranial findings. 2. Status post left frontal craniotomy. Decrease in size of the operative bed fluid collection with significant decrease in vasogenic edema and associated mass effect within the left frontal lobe since postoperative MRI of August 23, 2023. Operative bed dural enhancement is likely postsurgical. 3. Nodular enhancement within the posterior aspect of the operative bed, involving the left frontal lobe and genu of the corpus callosum, as described above. This is similar to postoperative MRI of August 23, 2023 and favors residual tumor. Postoperative change/radiation necrosis could appear similar although is considered less likely. ACT 112: Negative or not required by law. Electronically signed by: Raymundo Lundy M.D. 12/04/2023 7:56 AM Pending Results Patient Have Any Pending Studies at Discharge: No Discharge Instructions Given to Patient (Per Discharging Provider) Please refer to accompanying hospital discharge summary for further details. Total Time Total Time Spent Total Time Spent (In Minutes): >30 minutes
== END 2023-12-04 12:07 | disposition home or self-care (01) | DRG 92 ==
LOC: ED 09:20 → SUATTDRO 13:31 → EDINP 13:31 → 3N 16:09